=== PATIENT | female | born 1945 | race Hispanic/Latino ===

== ENCOUNTER 2020-10-10 08:47 | Inpatient (IN) | payer MEDICARE, OTHER ==
--- OUTSIDE RECORDS SUMMARY | 2020-10-10 08:50 | XMS REPORT | Continuity of Care Document ---
:1945 Author Organization [facility] t Address [address] [place] [address] Care Team Providers Name Role Phone Eugene Berman DO Primary Care Physician Amandeep FINE, J. Attending Clinician Lab, Fam Pob I Attending Clinician Unavailable Doctor Unassigned, Name Attending Clinician Unavailable Lab, Covid Attending Clinician Unavailable Payers Payer Name Policy Type Policy Effective Date Expiration Date Sour ce Number HUMANA [id number] 2019 [place] MEDICAREHUMANA HMO 00:00:00 Method ist [place] [id number]/-[facility] [place] This patient has no known problems. Allergies, Adverse Reactions, Alerts This patient has no known allergies or adverse reactions. Social History Social Habit Start Date Stop Date Quantity Comments Source Sex Assigned At [facility] Alcohol intake 2013-01-12 2013-01-12 Current [facility] - 00:00:00 00:00:00 non-drinker of Medical Ce nter alcohol (finding) Smoking Status Start Date Stop Date Source Never smoker [facility] Medications Ordered Filled Start Stop Current Ordering Indication Dosage Frequency Signature Comments Components Source Medication Medication Date Date Medication? Clinician (SIG) Name Name Noris Hamm 2019- No [place] [address] [facility] 9-16 12-14 [facility] 30 minutes Memori a 00 :00 before the l first meal Outpati of the day ent on an Clinics empty stomach Vitamin D3 Vitamin D3 2019- No [place] [address] [facility] 9-16 12-14 [facility] l [facility] ent Clinics Myrbetriq Myrbetriq 2018-06- No [place] [address] [facility] 1-05 04-08 [facility]00 [facility] omeprazole Yes 20mg QD Take [address] (PRILOSEC) 7-25 by mouth [facility] - 20 MG 14:32: daily. [facility] Ezetimibe Ezetimibe Yes [place] [address] [facility] Lisinopril Lisinopril Yes [place] [address] [facility] Omeprazole Omeprazole Yes T[place]ne [address] [facility] [facility] Simvastatin Simvastatin Yes [place] [address] [facility] in the [facility] - evening [facility] Procedures Procedure Date / Time Performed Performing Clinician [facility] e MRI SPINE EXTERNAL STUDY 2020-06-19 15:13:00 eLnin Bernstein [facility] Plan of Care Planned Activity Planned Date Details Comments Source Future Scheduled 2021-01-19 INFLUENZA VACCINE [place] [facility] Test 00:00:00 [code = INFLUENZA VACCINE] Future Scheduled 2009-02-05 65+ PNEUMOCOCCAL Orta N[facility]ational Test 00:00:00 VACCINE (1 of 1 - PPSV23) [code = 65+ PNEUMOCOCCAL VACCINE (1 of 1 - PPSV23)] Future Scheduled 1994-02-05 COLONOSCOPY SCREENING Ho inderjit [facility] Test 00:00:00 [code = COLONOSCOPY SCREENING] Future Scheduled 1994-02-05 SHINGLES VACCINES (#1) H [place] [facility] Test 00:00:00 [code = SHINGLES VACCINES (#1)] Future Scheduled 1962-02-05 Hepatitis C screening Erik jansen [facility] Test 00:00:00 (procedure) [code = 417705877] Future Scheduled 1960 COVID-19 VACCINE (1) Janet tamayo [facility] Test 00:00:00 [code = COVID-19 VACCINE (1)] Encounters Start End Encounter Admission Attending Care Care Encounter Source Date/Time Date/Time Type Type Clinicians Facility Department ID 2020-10-08 2020-10-08 [facility] [id number] 2020-09-02 2020-09-02 [facility] [id number] [facility] 2020-08-21 2020-08-21 Outpatient AMANDEEP [facility] [id number] [place] 00:00:00 00:00:00 LENIN [address] 2020-08-21 2020-08-21 Outpatient BERNSTEIN [facility] [id number] [place] 00:00:00 00:00:00 LENIN [address] 2020-07-20 2020-07-20 Laboratory Lab, [facility] [id number] 15:48:31 16:08:31 Only Fam Pob I Health [id number] [place] [id number] Professio [phone] nal 0[address] 2020-07-20 2020-07-20 Letter Doctor OLY [id number] 00:00:00 00:00:00 (Out) Unassigned, SATURN[place] [id number] [place] [facility] [id number] 2020-06-20 2020-06-20 [facility] [id number] [facility] 2020-06-17 2020-06-17 [facility] [id number] [facility] 2020-06-06 2020-06-06 [facility] [id number] [facility] 2020-06-03 2020-06-03 [facility] [id number] [facility] 2020-04-02 2020-04-02 [facility] [id number] [facility] 2020-03-19 2020-03-19 [facility] [id number] [facility] 2020-03-06 2020-03-06 [facility] [id number] 14[facility]30:00 14:30:00 t [employer] [facility] Medicine Outpati ent Clinics 2020-02-29 2020-02-29 Letter Lab, [place] [id number] 00:00:00 00:00:00 (Out) Covid Health [id number] [place] [id number] Professio [phone] nal 044 [address] One 2020-01-20 2020-01-20 Laboratory Lab, [facility] [place] [id number] 13:45:30 14:05:30 Only Fam Pob I Health [id number] [place] [id number] Professio [phone] nal 044 [address] One 2019-12-05 2019-12-05 [facility] [id number] 14:45:00 14:45:00 t [employer] [facility] Medicine Outpati ent Clinics 2019-11-20 2019-11-20 [facility] [id number] 09:10:00 09:10:00 [place] [facility] Medicine Outpati ent Clinics 2019-08-31 2019-08-31 [facility] [id number] 15:30:00 15:30:00 t [employer] - Drive [facility] Medicine Medicine Outpati ent Clinics 2019-08-31 2019-08-31 [facility] [id number] 15:15:00 15:15:00 t Sturgis Sturgis Ablynx Luke s - Drive [facility] l Medicine Outpati ent Clinics 2019-06-29 2019-06-29 [facility] [id number] 15:45:00 15:45:00 t Sturgis Sturgis Ablynx Luke s - Drive [facility] Medicine Outpati ent Clinics 2019-04-25 2019-04-25 [facility] [id number] 14:45:00 14:45:00 t Sturgis Sturgis Ablynx [employer] s - Drive [facility] l Medicine Outpati ent Clinics 2019-04-18 2019-04-18 [facility] [id number] 11:21:00 11:21:00 t Sturgis Sturgis [employer] s - Drive [facility] Medicine Outpati ent Clinics 2019-04-11 2019-04-11 [facility] [id number] 09:02:00 09:02:00 t Sturgis Sturgis Ablynx [employer] s - Drive [facility] l Medicine Outpati ent Clinics 2019-01-24 2019-01-24 [facility] [id number] 14:45:00 14:45:00 t Sturgis Sturgis [employer] s - Drive [facility] Medicine Outpati ent Clinics 2018-10-25 2018-10-25 [facility] [id number] 15:15:00 15:15:00 t Sturgis Sturgis Ablynx [employer] s - Drive [facility] Medicine Medicine Outpati ent Clinics 2018-09-19 2018-09-19 [facility] [id number] 09:16:00 09:16:00 t Sturgis Sturgis Ablynx [employer] s - Drive [facility] Medicine Outpati ent Clinics 2018-08-09 2018-08-09 [facility] [id number] 15:15:00 15:15:00 t Sturgis Sturgis Ablynx [employer] s - Drive [facility] l Medicine Outpati ent Clinics 2018-07-28 2018-07-28 [facility] [id number] 15:00:00 15:00:00 t [employer] [facility] Outpati ent Clinics 2018-07-22 2018-07-22 [facility] [id number] 15:18:00 15:18:00 t Urgent [facility] Outpat[facility] Clinics 2018-07-13 2018-07-13 [facility] [id number] 16:50:00 16:50:00 t I and love and you [facility] [employer] [facility] Outpati ent [facility] 2018-02-09 2018-02-09 [facility] [id number] 15:15:00 15:15:00 t I and [facility] and you [facility] [employer] [facility] ent [facility] Results Test Description Test Time Test Comments Results Result [facility] e Comments MRI Spine 2020-08-21 This exam was not Orta External Study 15:53:02 acquired at a [facility] Nondenominational facility and has not been interpreted by a Nondenominational Provider. The exam was imported into our imaging system.
[2020-10-10 09:25] LABS: Urine Blood Trace-intact (Negative); Urine Glucose Negative (Negative); Urine Protein Negative (Negative); Urine Specific Gravity 1.025 (1.005-1.030); Urine pH 5.5 (5.0-7.0)
[2020-10-10 09:28] LABS: Absolute Lymphocytes (CBC) 2.8 K/uL (0.7-4.9); Basophils % 0.9 % (0-1.3); Hematocrit 43.5 % (36.0-45.0); Lymphocytes % 23.2 % (15.3-44.8); MPV 8.4 fL (7.6-11.3); RBC Red Blood Cell Count 5.05 M/uL (3.86-4.86)
[2020-10-10] MEDS ORDERED: MORPHINE 4 MG/ML SYR ONE (09:39)
[2020-10-10] MEDS ORDERED: NA CHLORIDE 0.9% 1,000 ML ONE ×2 (09:39→16:20)
[2020-10-10] MEDS ORDERED: ONDANSETRON 4 MG/2 ML VIAL ONE ×2 (09:39→12:33)
[2020-10-10 09:42] LABS: Protime INR 0.97
[2020-10-10 09:47] LABS: ALT/SGPT 29 U/L (12-78); AST/SGOT 15 U/L (15-37); Alkaline Phosphatase 107 U/L (45-117); BUN Blood Urea Nitrogen 11 mg/dL (7-18); Bicarbonate 23 mmol/L (21-32); Bilirubin Direct 0.2 mg/dL (0-0.2); Bilirubin Total 0.6 mg/dL (0.2-1.0); Glucose Level 109 mg/dL (74-106); Lipase 46 U/L (73-393); Magnesium 2.2 mg/dL (1.8-2.4); NT PRO-BNP 28 pg/mL (<450); Potassium 3.9 mmol/L (3.5-5.1); Protein, Total 8.1 g/dL (6.4-8.2); Sodium Level 138 mmol/L (136-145); Troponin (Emerg Dept Use Only) < 0.02 ng/mL (0.0-0.045); Urine Bacteria <20 /HPF (<20); Urine Mucus LIGHT /HPF (NONE SEEN); Urine RBC <5 /HPF (NONE SEEN)
--- NOTE | 2020-10-10 10:09 | RAD REPORT ---
EXAM DESCRIPTION: RAD - Chest Single View - 10/10/2020 9:45 am CLINICAL HISTORY: CHEST PAIN, abdominal pain COMPARISON: March 2017 TECHNIQUE: AP portable chest image was obtained 10/10/2020 9:45 am . FINDINGS: Lungs are clear. Heart and vasculature are normal. No measurable pleural effusion and no p neumothorax. No acute bony abnormality seen. No acute aortic findings suspected. IMPRESSION: No acute cardiopulmonary process. No significant change from comparison study.
--- NOTE | 2020-10-10 10:31 | RAD REPORT ---
EXAM DESCRIPTION: CT - Abdomen Pelvis W Contrast - 10/10/2020 10:07 am CLINICAL HISTORY: ABD PAIN COMPARISON: Abdomen Pelvis W Contrast dated 07/14/2019 TECHNIQUE: Biphasic, helical CT imaging of the abdomen and pelvis was performed following 100 ml non -ionic IV contrast. No oral contrast was administered. All CT scans are performed using dose optimization technique as appropriate and may include automated exposure control or mA/KV adjustment according to patient size. FINDINGS: No suspicious findings in the lung bases. The liver, spleen, and pancreas show no suspicious findings. Fatty infiltration of the liver is prese nt. The multiple liver cyst 2 cm in size are not clearly different from prior imaging. Gallbladder is absent. Biliary tree dilatation within normal limits for a post cholecystectomy patient. Symmetric renal function is seen with no hydronephrosis or suspicious renal mass. No pyelonephritis o r acute parenchymal process. No bladder abnormalities. No adrenal abnormalities. No stomach or small bowel abnormality. The appendix is normal. No acute colon finding from cecum thro ugh mid descending colon. At the descending sigmoid junction there is a 3 centimeter long segment of circumferential wall thickening. There is edema and stranding in the adjacent fat mild in severity. P atient has very extensive diverticulosis through this region. No abscess, free air or extravasation o f luminal content. No free fluid or pneumatosis. No inflammatory stranding elsewhere. No mass or bulky lymphadenopath y. Disc and bone degenerative changes are present. IMPRESSION: Colon wall thickening, inflammatory stranding and surrounding extensive diverticulosis a t the descending- sigmoid colon junction. Acute diverticulitis is the most likely etiology. Colon mass is unlikely but can be correlated with f ollow-up colonoscopy after medical management of diverticulitis. No free air, abscess or other complicating factor.
--- NOTE | 2020-10-10 10:45 | ER ---
Nurse's Notes [facility] Name: Regi Cooney Age: 75 yrs Sex: Female : 1945 Arrival Date: 10/10/2020 Time: 08:49 Bed 20 Private MD: Estefania Duenas M; Tremayne Berman Diagnosis: Diverticulitis of large intestine without perforation or abscess without bleeding Presentation: 10/10 09:01 Chief complaint: Patient states: Pt reports she is taking antibiotics for aa5 diverticulitis. Reports abd pain. Pt also reports chest pain and cough. 09:01 Onset of symptoms was September 2020. aa5 09:01 Acuity: COLT 3 aa5 09:01 Method Of Arrival: Ambulatory aa5 09:42 Coronavirus screen: Client denies travel out of the [place] in the last 14 days. At this tr6 time, the client does not indicate any symptoms associated with coronavirus-19. Risk Assessment: Do you want to hurt yourself or someone else? Patient reports no desire to harm self or others. 14:42 Ebola Screen: Patient denies travel to an Ebola-affected area in the 21 days before tw2 illness onset. Initial Sepsis Screen: Does the patient meet any 2 criteria? No. Patient's initial sepsis screen is negative. Does the patient have a suspected source of infection? No. Patient's initial sepsis screen is negative. Historical: - Home Meds: 09:15 lisinopril Oral [Active]; tr6 - PMHx: 09:15 Hypertension; Arthritis; tr6 - Social history:: Smoking status: Patient/guardian denies using. Screenin:15 Nutritional screening: No deficits noted. Tuberculosis screening:. Fall Risk None tr6 identified. 09:41 Nutritional screening: No deficits noted. The patient passed the bedside swallow tr6 screening. Oral medications may be given as ordered. Contact Physician for further diet orders. Exposure risk/Travel Screening: None identified. 10:38 Abuse screen: Denies threats or abuse. tw2 Assessment: 09:10 General: Appears uncomfortable, well groomed, pt appears to be in pain . Behavior is tr6 calm, cooperative. Pain: Complains of pain in c/o generalized abdominal pain. Neuro: No deficits noted. Cardiovascular: No deficits noted. Respiratory: Reports pt reports "difficulty breathing" current o2 sat 100% on RA, lungs clear. pt reports that she feels as though she has "a lot of mucus in her chest". GI: Abdomen is distended, Bowel sounds present in epigastric area, umbilical area, suprapubic area, right upper quadrant, left upper quadrant, right lower quadrant and left lower quadrant Abd is non tender pt is non tender, but reports that she feels uncomfortable. : No deficits noted. EENT: No deficits noted. Derm: No deficits noted. Musculoskeletal: No deficits noted. 10:37 Reassessment: provider at bedside. tw2 11:26 Reassessment: Patient appears in no apparent distress at this time. tr6 12:27 Reassessment: pt reports that she still has pain. MD informed and orders placed and pt tr6 medicated. will continue to monitor. 13:19 Reassessment: pt reports pain has improved since arrival in ED. pending admission. will tr6 continue to monitor. 20:14 Reassessment: Patient and/or family updated on plan of care and expected duration. Pain ea level reassessed. Patient is alert, oriented x 3, equal unlabored respirations, skin warm/dry/pink. Awaiting on room assignment. 21:21 Reassessment: Patient and/or family updated on plan of care and expected duration. Pain ea level reassessed. Patient is alert, oriented x 3, equal unlabored respirations, skin warm/dry/pink. Pt admitted to fourth floor. Report given to receiving nurse. Pt left ED via wheelchair per tech, pt tolerating well. Vital Signs: 09:17 BP 171 / 89; Pulse 92; Resp 18; Pulse Ox 100% ; tr6 10:38 BP 141 / 79; Pulse 83; Resp 17; Pulse Ox 100% on R/A; tw2 12:01 BP 143 / 83; Pulse 73; Resp 18; Pulse Ox 100% ; tr6 13:00 BP 122 / 70; Pulse 70; Resp 18; Pulse Ox 96% ; tr6 20:17 BP 127 / 74; Pulse 76; Resp 18; Pulse Ox 96% on R/A; ea 21:22 BP 120 / 68; Pulse 70; Resp 18; Pulse Ox 98% ; ea Vitals: 09:17 Cardiac Rhythm Assessment Regular. tr6 NIH Stroke Scale Scores: 09:15 NIHSS Score: 0 tr6 ED Course: 08:49 Patient arrived in ED. as 08:49 Tremayne Berman DO is Private Physician. as 08:49 Estefania Duenas MD is Private Physician. as 09:01 Castillo Chan PA is PHCP. jr8 09:01 Ry Ledezma MD is Attending Physician. jr8 09:01 Arm band placed on Patient placed in an exam room, on a stretcher. aa5 09:03 Castillo Chan PA is PHCP. jr8 09:40 Basic Metabolic Panel Sent. tr6 09:40 Magnesium Sent. tr6 09:40 NT PRO-BNP Sent. tr6 09:40 PT-INR Sent. tr6 09:40 Troponin (emerg Dept Use Only) Sent. tr6 09:40 XRAY Chest (1 view) Sent. tr6 09:41 Triage completed. aa5 09:41 Bo Flannery MD is Attending Physician. jr8 09:41 Basic Metabolic Panel Sent. tr6 09:41 Hepatic Function Sent. tr6 09:41 Lipase Sent. tr6 09:42 Inserted saline lock: 20 gauge in right forearm, using aseptic technique. ,using tr6 aseptic technique. by Selena DECKER Blood collected. 09:42 Patient has correct armband on for positive identification. Placed in gown. Bed in low tr6 position. Call light in reach. Side rails up X 1. 09:45 XRAY Chest (1 view) In Process Unspecified. EDMS 10:07 CT Abd/Pelvis - IV Contrast Only In Process Unspecified. EDMS 10:37 Skyla Garrido, JERONIMO is Primary Nurse. tw2 10:44 Elida Michaud MD is Hospitalizing Provider. jr8 11:19 Urine Dipstick-Ancillary Sent. tr6 11:56 groundwater monitoring technician on. Pulse ox on. NIBP on. Door closed. Noise minimized. Warm blanket tr6 given. Diet: Patient is NPO. 12:27 Awaiting bed assignment. tr6 12:27 Resting quietly. tr6 19:47 No provider procedures requiring assistance completed. Patient admitted, IV remains in ea place. Administered Medications: 09:33 Drug: morphine 4 mg Route: IVP; Site: right forearm; tr6 09:44 Follow up: Response: No adverse reaction; Pain is decreased tr6 09:33 Drug: Zofran (Ondansetron) 4 mg Route: IVP; Site: right forearm; tr6 09:44 Follow up: Response: No adverse reaction; Nausea is decreased tr6 11:20 Follow up: Response: No adverse reaction tr6 09:33 Drug: NS 0.9% 1000 ml Route: IV; Rate: 1000 ml; Site: right forearm; tr6 11:20 Follow up: IV Intake: 1000ml tr6 10:53 Drug: Flagyl (metroNIDAZOLE) 500 mg Volume: 100 ml; Route: IVPB; Rate: 200 ml/hr; tr6 Infused Over: 30 mins; Site: right forearm; 11:23 Follow up: Response: Pain is decreased; IV Intake: 100ml tr6 11:26 Drug: Cipro (ciprofloxacin) 400 mg Volume: 200 ml; Route: IVPB; Infused Over: 60 mins; tr6 Site: right forearm; 11:57 Follow up: Response: No adverse reaction tr6 12:30 Follow up: IV Intake: 200ml tr6 12:16 Drug: Zofran (Ondansetron) 4 mg Route: IVP; Site: right forearm; tr6 12:46 Follow up: Response: No adverse reaction; Nausea is decreased tr6 12:21 Drug: Bentyl (dicyclomine) 20 mg Route: IM; Site: right deltoid; tr6 12:46 Follow up: Response: No adverse reaction; Pain is decreased tr6 Intake: 11:20 IV: 1000ml; Total: 1000ml. tr6 11:23 IV: 100ml; Total: 1100ml. tr6 12:30 IV: 200ml; Total: 1300ml. tr6 Outcome: 10:44 Decision to Hospitalize by Provider. jr8 19:47 Instructed on the need for admit, Demonstrated understanding of instructions. ea 21:21 Admitted to Med/surg accompanied by tech, via wheelchair, room 419, with chart, Report ea called to Receiving nurse on fourth floor 21:21 Condition: stable 21:22 Patient left the ED. ea NIH Stroke Scale - NIH Stroke Score Date: 10/10/2020 Time: 09:15 Total Score = 0 1a. Level of Consciousness (LOC) - 0(Alert) 1b. Level of Consciousness (LOC) (Year \\T\\ Age) - 0(Both) 1c. LOC Commands (Open \\T\\ Closes Eyes/Preschool Teacher) - 0(Both) 2. Best Gaze (Lateral Gaze Paresis) - 0(Normal) 3. Visual Field Loss - 0(No visual loss) 4. Facial Palsy - 0(Normal) 5a. Left Arm: Motor (10-second hold) - 0(No drift) 5b. Right Arm: Motor (10-second hold) - 0(No drift) 6a. Left Leg: Motor (5-second hold - always test supine) - 0(No drift) 6b. Right Leg: Motor (5-second hold - always test supine) - 0(No drift) 7. Limb Ataxia (finger/nose \\T\\ heel/rogers - test with eyes open) - 0(Absent) 8. Sensory Loss (pinprick arms/legs/face) - 0(Normal) 9. Best Language: Aphasia (description/naming/reading) - 0(No aphasia) 10. Dysarthria (speech clarity - read or repeat words) - 0(Normal) 11. Extinction and Inattention (visual/tactile/auditory/spatial/personal) - 0(No abnormality) Initials: tr6 Signatures: Dispatcher [employer] Vesna Sanders Audri, RN RN aa5 Castillo Chan PA PA jr8 Selena Rod RN RN tw2 Carolina Matos RN RN ea Ramnanan, Tiffany, RN RN tr6 Corrections: (The following items were deleted from the chart) 09:43 09:42 Inserted tr6 tr6 11:24 11:23 IV Intake: 100ml tr6 tr6 11:25 11:19 Flagyl (metroNIDAZOLE) 500 mg 100 ml IVPB at 200 ml/hr in right forearm tr6 over 30 mins 100 ml tr6
--- NOTE | 2020-10-10 10:45 | EDPHYS ---
Physician Documentation [facility] Name: Regi Cooney Age: 75 yrs Sex: Female : 1945 Arrival Date: 10/10/2020 Time: 08:49 Bed 20 Private MD: Estefania Duenas M; Tremayne Berman ED Physician Bo Flannery HPI: 10/10 09:16 This 75 yrs old Female presents to ER via Unassigned with complaints of jr8 diverticulitis. 09:16 Patient reports hx of diverticulosis that has been flaring up for 3 weeks with LLQ jr8 pain. She reports being put on Abx but they did not help. She also reports CP with coughing up blood this morning. Denies COVID exposure and has had both shots. PMHx HTN only. Historical: - Home Meds: 09:15 lisinopril Oral [Active]; tr6 - PMHx: 09:15 Hypertension; Arthritis; tr6 - Social history:: Smoking status: Patient/guardian denies using. ROS: 09:18 : Negative for injury, bleeding, discharge, and swelling, MS/Extremity: Negative for jr8 injury and deformity, Neuro: Negative for headache, weakness, numbness, tingling, and seizure. 09:18 Cardiovascular: Positive for chest pain, with cough. 09:18 Respiratory: Positive for shortness of breath, on exertion. 09:18 Abdomen/GI: Positive for abdominal pain, diarrhea. Exam: 09:18 Chest/axilla: Normal chest wall appearance and motion. Nontender with no deformity. jr8 No lesions are appreciated. Cardiovascular: Regular rate and rhythm with a normal S1 and S2. No gallops, murmurs, or rubs. Normal PMI, no JVD. No pulse deficits. 09:18 Respiratory: the patient does not display signs of respiratory distress, Respirations: normal, Breath sounds: decreased breath sounds, are scattered. 09:18 Abdomen/GI: Inspection: obese scar(s), are noted in the suprapubic area, Bowel sounds: diminished, in the left lower quadrant, Palpation: moderate abdominal tenderness, in the left lower quadrant, involuntary guarding, is elicited in all quadrants. Vital Signs: 09:17 BP 171 / 89; Pulse 92; Resp 18; Pulse Ox 100% ; tr6 10:38 BP 141 / 79; Pulse 83; Resp 17; Pulse Ox 100% on R/A; tw2 12:01 BP 143 / 83; Pulse 73; Resp 18; Pulse Ox 100% ; tr6 13:00 BP 122 / 70; Pulse 70; Resp 18; Pulse Ox 96% ; tr6 20:17 BP 127 / 74; Pulse 76; Resp 18; Pulse Ox 96% on R/A; ea 21:22 BP 120 / 68; Pulse 70; Resp 18; Pulse Ox 98% ; ea NIH Stroke Scale Scores: 09:15 NIHSS Score: 0 tr6 MDM: 09:01 Patient medically screened. jr8 10:42 Data reviewed: vital signs, nurses notes, lab test result(s), radiologic studies, CT jr8 scan, plain films. Data interpreted: Pulse oximetry: on room air is 100 %. Interpretation: normal. Counseling: I had a detailed discussion with the patient and/or guardian regarding: the historical points, exam findings, and any diagnostic results supporting the discharge/admit diagnosis, lab results, radiology results, the need for further work-up and treatment in the hospital. ED course: Patient with moderate diverticulitis present. Stated that she has had this for 3 weeks without resolution despite Abx given by GI physician. Will admit for IV antibiotic therapy . 10/10 09:13 Order name: Basic Metabolic Panel [facility] 10/10 09:13 Order name: CBC with Diff; Complete Time: 09:29 [facility] 10/10 09:13 Order name: Hepatic Function; Complete Time: :56 [facility] 10/10 09:13 Order name: Lipase; Complete Time: 09:56 [facility] 10/10 09:13 Order name: Urine Microscopic Only; Complete Time: 09:56 [facility] 10/10 09:13 Order name: C-Reactive Protein; Complete Time: 09:56 [facility] 10/10 09:13 Order name: Magnesium; Complete Time: :56 [facility] 10/10 09:13 Order name: NT PRO-BNP; Complete Time: 09:56 [facility] 10/10 09:13 Order name: PT-INR; Complete Time: 09:56 [facility] 10/10 09:13 Order name: Troponin (emerg Dept Use Only); Complete Time: 09:56 [facility] 10/10 09:14 Order name: Basic Metabolic Panel; Complete Time: 09:56 EDMS 10/10 09:25 Order name: Urine Dipstick-Ancillary EDMS 10/10 12:36 Order name: Basic Metabolic Panel EDMS 10/10 12:36 Order name: Basic Metabolic Panel EDMS 10/10 09:13 Order name: CT Abd/Pelvis - IV Contrast Only; Complete Time: 10:32 8 10/10 09:13 Order name: XRAY Chest (1 view); Complete Time: 10:25 8 10/10 09:13 Order name: EKG; Complete Time: 09:14 8 10/10 12:36 Order name: CBC with Automated Diff EDMS 10/10 12:36 Order name: CBC with Automated Diff EDMS 10/10 17:44 Order name: COVID-19 : Document "Date of Symptom Onset" if Symptomatic. kj1 10/10 18:06 Order name: CORONAVIRUS EDAK 10/10 19:02 Order name: SARS-COV-2 RT PCR; Complete Time: 19:25 [facility] 10/10 09:13 Order name: IV Saline Lock; Complete Time: 09:40 8 10/10 09:13 Order name: Labs collected and sent; Complete Time: 09:41 8 10/10 09:13 Order name: Urine Dipstick-Ancillary (obtain specimen); Complete Time: 09:58 8 10/10 09:13 Order name: Cardiac monitoring; Complete Time: 09:40 8 10/10 09:13 Order name: EKG - Nurse/Tech; Complete Time: 09:57 8 10/10 09:13 Order name: O2 Per Protocol; Complete Time: 09:40 8 10/10 09:13 Order name: O2 Sat Monitoring; Complete Time: 09:40 8 10/10 12:36 Order name: CONS Physician Consult EDAK 10/10 12:36 Order name: NPO EDAK 10/10 12:36 Order name: EKG Electrocardiogram EDAK 10/10 12:36 Order name: EKG Electrocardiogram EDMS 10/10 12:36 Order name: EKG Electrocardiogram EDMS 10/10 12:36 Order name: EKG Electrocardiogram EDMS 10/10 12:36 Order name: EKG Electrocardiogram EDMS 10/10 12:36 Order name: EKG Electrocardiogram EDMS 10/10 12:36 Order name: EKG Electrocardiogram EDMS 10/10 12:36 Order name: EKG Electrocardiogram EDMS 10/10 12:36 Order name: EKG Electrocardiogram EDMS 10/10 12:36 Order name: EKG Electrocardiogram EDMS 10/10 12:36 Order name: EKG Electrocardiogram EDMS Administered Medications: 09:33 Drug: morphine 4 mg Route: IVP; Site: right forearm; tr6 09:44 Follow up: Response: No adverse reaction; Pain is decreased tr6 09:33 Drug: Zofran (Ondansetron) 4 mg Route: IVP; Site: right forearm; tr6 09:44 Follow up: Response: No adverse reaction; Nausea is decreased tr6 11:20 Follow up: Response: No adverse reaction tr6 09:33 Drug: NS 0.9% 1000 ml Route: IV; Rate: 1000 ml; Site: right forearm; tr6 11:20 Follow up: IV Intake: 1000ml tr6 10:53 Drug: Flagyl (metroNIDAZOLE) 500 mg Volume: 100 ml; Route: IVPB; Rate: 200 ml/hr; tr6 Infused Over: 30 mins; Site: right forearm; 11:23 Follow up: Response: Pain is decreased; IV Intake: 100ml tr6 11:26 Drug: Cipro (ciprofloxacin) 400 mg Volume: 200 ml; Route: IVPB; Infused Over: 60 mins; tr6 Site: right forearm; 11:57 Follow up: Response: No adverse reaction tr6 12:30 Follow up: IV Intake: 200ml tr6 12:16 Drug: Zofran (Ondansetron) 4 mg Route: IVP; Site: right forearm; tr6 12:46 Follow up: Response: No adverse reaction; Nausea is decreased tr6 12:21 Drug: Bentyl (dicyclomine) 20 mg Route: IM; Site: right deltoid; tr6 12:46 Follow up: Response: No adverse reaction; Pain is decreased tr6 Disposition: 10/10/20 10:44 Hospitalization ordered by Elida Michaud for Inpatient Admission. Preliminary diagnosis is Diverticulitis of large intestine without perforation or abscess without bleeding. - Bed requested for Telemetry/MedSurg (Inpatient). - Status is Inpatient Admission. ea - Condition is Stable. - Problem is new. - Symptoms are unchanged. NIH Stroke Scale - NIH Stroke Score Date: 10/10/2020 Time: 09:15 Total Score = 0 1a. Level of Consciousness (LOC) - 0(Alert) 1b. Level of Consciousness (LOC) (Year \\T\\ Age) - 0(Both) 1c. LOC Commands (Open \\T\\ Closes Eyes/Technical Spec) - 0(Both) 2. Best Gaze (Lateral Gaze Paresis) - 0(Normal) 3. Visual Field Loss - 0(No visual loss) 4. Facial Palsy - 0(Normal) 5a. Left Arm: Motor (10-second hold) - 0(No drift) 5b. Right Arm: Motor (10-second hold) - 0(No drift) 6a. Left Leg: Motor (5-second hold - always test supine) - 0(No drift) 6b. Right Leg: Motor (5-second hold - always test supine) - 0(No drift) 7. Limb Ataxia (finger/nose \\T\\ heel/rogers - test with eyes open) - 0(Absent) 8. Sensory Loss (pinprick arms/legs/face) - 0(Normal) 9. Best Language: Aphasia (description/naming/reading) - 0(No aphasia) 10. Dysarthria (speech clarity - read or repeat words) - 0(Normal) 11. Extinction and Inattention (visual/tactile/auditory/spatial/personal) - 0(No abnormality) Initials: tr6 Addendum: 10/14/2020 19:27 Co-signature as Attending Physician, Bo Flannery MD. rn Signatures: Dispatcher [employer] EDMS Ailyn Foster RN RN mw Nieto, Roman, MD MD rn Roszak, Josh, PA PA jr8 Carolina Matos RN RN ea Ramnanan, Tiffany, RN RN tr6 Corrections: (The following items were deleted from the chart) 10/10 09:18 09:16 Patient reports hx of diverticulosis that has been flaring up for 3 weeks jr8 with LLQ pain. She reports being put on Abx but they did not help. She also reports CP with coughing up blood this morning. Denies COVID exposure and has had both shots. . jr8 20:15 10:44 Hospitalization Ordered by Elida Michaud MD for Inpatient Admission. charles Preliminary diagnosis is Diverticulitis of large intestine without perforation or abscess without bleeding. Bed requested for Telemetry/MedSurg (Inpatient). Status is Inpatient Admission. Condition is Stable. Problem is new. Symptoms are unchanged. jr8 21:22 20:15 10/10/2020 10:44 Hospitalization Ordered by Elida Michaud MD for ea Inpatient Admission. Preliminary diagnosis is Diverticulitis of large intestine without perforation or abscess without bleeding. Bed requested for Telemetry/MedSurg (Inpatient). Status is Inpatient Admission. Condition is Stable. Problem is new. Symptoms are unchanged. mw
[2020-10-10] MEDS ORDERED: ACETAMINOPHEN 500 MG TAB PO PRN (12:32)
[2020-10-10] MEDS ORDERED: DICYCLOMINE HCL 20 MG/2 ML AMP IM ONE (12:33)
[2020-10-10] MEDS: NA CHLORIDE 0.9% 1,000 ML IV SCH ×2 (13:00→22:17)
[2020-10-10] MEDS: Levofloxacin500mg IV 500 MG/100 ML BAG IV SCH ×2 (13:00→16:00)
[2020-10-10] MEDS ORDERED: NA CHLORIDE 0.9% 250 ML IV SCH (13:00)
[2020-10-10 15:01] VITALS: BMI 32.8
[2020-10-10] MEDS: MORPHINE 2 MG/ML SYR IV PRN ×2 (16:13→22:17)
[2020-10-10] MEDS ORDERED: Levofloxacin500mg IV 500 MG/100 ML BAG IV ONE (16:19)
[2020-10-10] MEDS ORDERED: MORPHINE 2 MG/ML SYR ONE (16:31)
[2020-10-10] MEDS: METRONIDAZOLE 500mg IVPB 500 MG/100 ML BAG IV SCH (17:00)
[2020-10-10] MEDS ORDERED: METRONIDAZOLE 500mg IVPB 500 MG/100 ML BAG IV ONE (19:35)
[2020-10-10] MEDS: ONDANSETRON 4 MG/2 ML VIAL IV PRN (22:17)
[2020-10-11] MEDS: METRONIDAZOLE 500mg IVPB 500 MG/100 ML BAG IV SCH ×3 (01:00→17:00)
[2020-10-11] MEDS: NA CHLORIDE 0.9% 1,000 ML IV SCH ×2 (04:50→20:14)
[2020-10-11] MEDS: MORPHINE 2 MG/ML SYR IV PRN ×3 (04:51→23:33)
[2020-10-11] MEDS: ONDANSETRON 4 MG/2 ML VIAL IV PRN (04:51)
[2020-10-11 10:05] LABS: Basophils % 0.4 % (0-1.3); Hematocrit 37.4 % (36.0-45.0); MPV 8.9 fL (7.6-11.3); RBC Red Blood Cell Count 4.28 M/uL (3.86-4.86)
[2020-10-11 10:11] LABS: BUN Blood Urea Nitrogen 8 mg/dL (7-18)
[2020-10-11 11:02] LABS: Bicarbonate 22 mmol/L (21-32); Glucose Level 88 mg/dL (74-106); Potassium 4.3 mmol/L (3.5-5.1); Sodium Level 140 mmol/L (136-145)
[2020-10-11] MEDS: Levofloxacin500mg IV 500 MG/100 ML BAG IV SCH (13:00)
[2020-10-12] MEDS: METRONIDAZOLE 500mg IVPB 500 MG/100 ML BAG IV SCH ×4 (00:12→23:37)
[2020-10-12] MEDS: NA CHLORIDE 0.9% 1,000 ML IV SCH ×2 (05:00→09:48)
[2020-10-12] MEDS: MORPHINE 2 MG/ML SYR IV PRN (06:15)
--- NOTE | 2020-10-12 07:59 | EKG ---
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
--- NOTE | 2020-10-12 08:02 | EKG ---
Test Date: 2020-10-10 Test Time: 09:53:22 Location Worker: TTR MEASUREMENT RESULTS: Intervals: Rate: 72 CT: 148 QRSD: 72 QT: 388 QTc: 424 [place]: P: 48 CT: 148 QRS: 48 T: 36 INTERPRETIVE STATEMENTS: Normal sinus rhythm Low voltage QRS Borderline ECG No previous ECG available for comparison Electronically Signed On 10-12-20 07:58:28 CDT by Mazin Lee
--- NOTE | 2020-10-12 11:43 | RAD REPORT ---
EXAM DESCRIPTION: RAD - Abdomen 1 View (KUB) - 10/12/2020 9:24 am CLINICAL HISTORY: abdominal pain Pain COMPARISON: <Comparisons> FINDINGS: The bowel gas pattern is non-obstructive. No evidence of free air or pneumatosis. No suspi cious calcifications. Cholecystectomy clips. No significant bony findings. Moderate fecal retention. IMPRESSION: Negative examination.
[2020-10-12] MEDS: Levofloxacin500mg IV 500 MG/100 ML BAG IV SCH (12:55)
[2020-10-12] MEDS ORDERED: MINERAL OIL 30 ML UCUP PO ONE (13:00)
--- NOTE | 2020-10-12 15:05 | CON ---
Date of Consultation: 10/12/2020 Brief Hpi: The patient is a 75-year-old female who presents to the ER with signs and sympto ms of acute diverticulitis. She states that she has had multiple episodes before in the past over th e past 10 years approximately where she has had multiple episodes of left lower quadrant, left upper quadrant abdominal pain, which she was seen in the hospital for. Imaging was performed multiple time s and showed significant diverticulitis on those episodes. She has never had an episode of complicat ed diverticulitis by her report, which she is unsure of all the details of her previous hospitalizati ons. She states she did have a colonoscopy approximately [address] Duenas, which showed se alf diverticulosis and low-grade diverticulitis. She now had another flare-up approximately 3 weeks ago and continues to have worsening pain. She has decreased bowel function. She has not passed gas or had bowel movements on occasions for up to 4 days and on this particular occasion, she has not wray d a bowel movement 3 days, but continues to pass gas. Her abdominal pain symptoms have improved sinc e being brought to the hospital, started on antibiotics and pain medication, but this is a typical co urse for her she states. She denies any sick contacts or recent travel. No new food exposures and n o COVID exposures by her knowledge and has had two COVID immunization shots. Past Medical History: Significant for hypertension, arthritis. Past Surgical History: She has had a cholecystectomy as well as a tubal ligation. She has never had any other intraabdominal surgery. Social History: She denies smoking, alcohol, or recreational drug use. Review of Systems: A 10 point review of systemsother than HPI, denies. Medications: Her home medications included ezetimibe, Zestril, Protonix, and simvastatin. Physical Examination: Vital Signs: At time of my examination, her BMI is 32.8. Her blood pressure 143/62, heart rate was 66, respiratory rate 18, temperature 97.6, SpO2 98% on room air. General: She is awake, alert, oriented. Psychiatric: She is appropriate, conversive. HEENT: She is normocephalic. Sclerae icteric. Mucous membranes are moist. Oropharynx clear. Neck: Supple without JVD. Chest: Normal expansion and excursion. Cardiovascular: Regular rate and rhythm. Pulmonary: Clear to auscultation bilaterally. Abdomen: Soft with mild global tenderness to palpation, worse on the left lower and left upper abdom en. There is no peritonitis at this time. Skin: Warm and dry. Extremities: No clubbing, cyanosis, edema. Laboratory Data: Reveals a white blood cell count 7.2, hemoglobin 12.3, over hematocrit of 37.4, lala telet count is 245. Her sodium 140, potassium 4.3, chloride 112, carbon dioxide 22, BUN 8, creatinin e 0.5, glucose is 88. Her C-reactive protein was 18 as of 10/10, lipase is 46 on 10/10. Her urinaly sis was essentially negative. She had imaging performed, which included a CT abdomen and pelvis on 10/10 officially read as fatty infiltration of the liver is present. Biliary tree dilatation within n ormal limits for post cholecystectomy patient. Appendix is normal. No acute colon. The finding fro m cecum through mid descending colon. At the descending sigmoid junction, there is a 3 cm long segme nt of circumferential wall thickening. There is edema and stranding in the adjacent fat, mild in sev erity. The patient has extensive diverticulosis throughout this region. No abscess, free air, extra vasation or luminal content. No free air, pneumatosis. No inflammatory stranding elsewhere. No bul ky lymphadenopathy. Impression: Colon wall thickening, inflammatory stranding surrounding extensive diverticulosis at th e descending sigmoid junction, acute diverticulitis most likely etiology colon mass is unlikely. We can correlate with followup colonoscopy after medical management of diverticulitis. Assessment And Plan: This is a 75-year-old female who comes in with recurrent diverticulitis based o n her clinical imaging and her presentation. Given that she has had a recent colonoscopy as a 4 kiley hs ago, which by her knowledge is significant only for diverticulitis and diverticulosis. I suspect this is a diverticulitis flare. 1.IV fluid hydration. 2.Antibiotic coverage. 3.Advance diet with clear liquid diet and full liquids. I recommend patient to be remain on a low r esidue/full liquid diet until surgical planning is entertained in the clinic at this at that point if she is tolerating diet and meeting her nutritional goals, we can discuss surgical planning at that p oint. The patient does not need emergency surgery at this time and therefore I would recommend a cou rse of antibiotics followed by review of her CT of her review of her colonoscopy findings and discuss ion of surgical planning. The patient agrees to proceed as indicated. CARLENE/MEGHAN Voice ID: [id number] Report ID: [id number]
[2020-10-12 21:55] VITALS: O2SAT 97
[2020-10-13] MEDS: NA CHLORIDE 0.9% 1,000 ML IV SCH (00:16)
[2020-10-13] MEDS ORDERED: MELATONIN 5 MG TABLET PO ONE (00:28)
[2020-10-13 04:57] VITALS: BP 131/72; TEMP 97.6
[2020-10-13] MEDS: METRONIDAZOLE 500mg IVPB 500 MG/100 ML BAG IV SCH (07:35)
--- NOTE | 2020-10-13 08:32 | P.HP ---
Certification for Inpatient Patient admitted to: Inpatient With expected LOS: >2 Midnights Patient will require the following post-hospital care: None Practitioner: I am a practitioner with admitting privileges, knowledge of patient current condition, hospital course, and medical plan of care. Services: Services provided to patient in accordance with Admission requirements found in Title 42 Section 412.3 of the Code of Federal Regulations Patient History Date of Service: 10/10/20 Reason for admission: Diverticulitis History of Present Illness: Patient is a 75-year-old female with recurrent admissions for abdominal pain. Patient is a history of diverticulitis. She has been treated on 4 different occasions. She came to the hospital clear symptom run improving. In the emergency room she was given medication with little relief. She came to the ER for further evaluation. In the emergency room, CT scan revealed diverticulitis. Patient be admitted to the hospital for IV antibiotic therapy and will be kept NPO. Allergies No Known Allergies Allergy (Unverified 10/01/16 14:20) Home Medications: Lisinopril [Zestril] 20 mg PO DAILY MDD 20 10/10/20 Pantoprazole [Protonix Tab*] 40 mg PO DAILY MDD 40 10/10/20 Simvastatin 10 mg PO DAILY MDD 10 10/10/20 Ezetimibe 10 mg PO BEDTIME 10/11/20 - Past Medical/Surgical History Has patient received pneumonia vaccine in the past: Yes -: Acute diverticulitis Past Surgical History: Patient denies surgical history - Family History Father Family History: Reviewed- Non-Contributory - Social History Smoking Status: Never smoker Alcohol use: No CD- Drugs: No Place of Residence: Home Review of Systems 10-point ROS is otherwise unremarkable Physical Examination - Vital Signs Temperature: 97.6 F Blood Pressure: 131/72 Pulse: 77 Respirations: 16 Pulse Ox (%): 97 - Physical Exam General: Alert, In no apparent distress, Oriented x3 HEENT: Atraumatic, PERRLA, Mucous membr. moist/pink, EOMI, Sclerae nonicteric Neck: Supple, 2+ carotid pulse no bruit, No LAD, Without JVD or thyroid abnormality Respiratory: Clear to auscultation bilaterally, Normal air movement Cardiovascular: Regular rate/rhythm, Normal S1 S2 Gastrointestinal: Hypoactive, Soft and benign, Non-distended, Tenderness Musculoskeletal: No clubbing, No swelling, No tenderness Integumentary: No rashes Neurological: Normal gait, Normal speech, Normal strength at 5/5 x4 extr, Normal tone, Sensation intact, Cranial nerves 3-12 intact, Normal affect Lymphatics: No axilla or inguinal lymphadenopathy Assessment & Plan - Problems (Diagnosis) (1) Diverticulitis large intestine w/o perforation or abscess w/bleeding Current Visit: Yes Status: Acute - Plan 1. Continue with IV hydration 2. Continue with IV antibiotics 3. Continue with pain control 4. NPO 5. GI & general surgery consultation; outpatient colonoscopy in 6-12 weeks 6. Serial H&H, and we will monitor CBC, BMP, LFTs and lipase along with electrolytes. 7. GI and DVT prophylaxis Discharge Plan: Home Plan to discharge in: Greater than 2 days - Advance Directives Does patient have a Living Will: No Does patient have a Durable POA for Healthcare: No - Code Status/Comfort Care Code Status Assessed: Yes Code Status: Full Code Critical Care: No Time Spent Managing PTS Care (In Minutes): 45
--- NOTE | 2020-10-13 08:34 | P.PN ---
Subjective Date of Service: 10/11/20 Subjective: No new changes, No C/O voiced, Improving Patient improving. However, she did ask me if there is any surgical interventions that could be done. She has had frequent diverticulitis and does not know her options. She sees local GI in gets colonoscopies. These have revealed diverticulums. Wants know if there is any other options. Review of Systems 10-point ROS is otherwise unremarkable Physical Examination - Vital Signs Temperature: 97.6 F Blood Pressure: 131/72 Pulse: 77 Respirations: 16 Pulse Ox (%): 97 - Physical Exam General: Alert, In no apparent distress, Oriented x3 Respiratory: Clear to auscultation bilaterally, Normal air movement Cardiovascular: Regular rate/rhythm, Normal S1 S2 Gastrointestinal: Hypoactive, Tenderness Musculoskeletal: No clubbing, No swelling, No tenderness Neurological: Normal speech, Normal tone, Normal affect Lymphatics: No axilla or inguinal lymphadenopathy - Studies Medications List Reviewed: Yes Assessment & Plan - Problems (Diagnosis) (1) Diverticulitis large intestine w/o perforation or abscess w/bleeding Current Visit: Yes Status: Acute - Plan continue with plan of care as mentioned below 1. Continue with IV hydration 2. Continue with IV antibiotics 3. Continue with pain control 4. Clear liquid diet 5. GI & general surgery consultation; outpatient colonoscopy in 6-12 weeks 6. Serial H&H, and we will monitor CBC, BMP, LFTs and lipase along with electrolytes. 7. GI and DVT prophylaxis Discharge Plan: Home Plan to discharge in: Greater than 2 days - Advance Directives Does patient have a Living Will: No Does patient have a Durable POA for Healthcare: No - Code Status/Comfort Care Code Status: Full Code Critical Care: No Time Spent Managing PTS Care (In Minutes): 35
[2020-10-13] MEDS ORDERED: MINERAL OIL 30 ML UCUP PO ONE (08:36)
--- NOTE | 2020-10-13 08:36 | P.PN ---
Date of Service: 10/12/20 Subjective Patient improving. However, she did ask me if there is any surgical interventions that could be done. She has had frequent diverticulitis and does not know her options. She sees local GI in gets colonoscopies. These have revealed diverticulums. Wants know if there is any other options. Review of Systems 10-point ROS is otherwise unremarkable Physical Examination - Vital Signs Reviewed - Physical Exam General: Alert, In no apparent distress, Oriented x3 Respiratory: Clear to auscultation bilaterally, Normal air movement Cardiovascular: Regular rate/rhythm, Normal S1 S2 Gastrointestinal: Hypoactive, Tenderness Musculoskeletal: No clubbing, No swelling, No tenderness Neurological: Normal speech, Normal tone, Normal affect Assessment & Plan - Problems (Diagnosis) (1) Diverticulitis large intestine w/o perforation or abscess w/bleeding Current Visit: Yes Status: Acute - Plan continue with plan of care as mentioned below 1. Continue with IV hydration 2. Continue with IV antibiotics 3. Continue with pain control 4. Clear liquid diet; feeling constipated. Mineral oil x1 5. Outpatient GI & general surgery evaluation 6. Serial H&H, and we will monitor CBC, BMP, LFTs and lipase along with electrolytes. 7. GI and DVT prophylaxis Discharge Plan: Home
--- NOTE | 2020-10-13 10:45 | P.PN ---
Subjective Date of Service: 10/13/20 Chief Complaint: Diverticulitis Subjective: Improving (patient is pain free, ambulatory, had several large BMs.) Physical Examination - Vital Signs Temperature: 97.6 F Blood Pressure: 131/72 Pulse: 77 Respirations: 16 Pulse Ox (%): 97 - Physical Exam General: Alert, In no apparent distress, Cooperative HEENT: Mucous membr. moist/pink Gastrointestinal: Soft and benign, Non-distended, No ascites, No tenderness, No masses, No rebound, No guarding - Studies Medications List Reviewed: Yes Assessment And Plan - Current Problems (Diagnosis) (1) Diverticulitis large intestine w/o perforation or abscess w/bleeding Current Visit: Yes Status: Acute Plan: - low residue diet - DC home from surgical standpoint, follow up in my clinic in 1-2 weeks for surgical discussion - will review last colonoscopy from Dr. Duenas office
--- NOTE | 2020-10-18 18:59 | P.PN ---
Subjective Date of Service: 10/13/20 Chief Complaint: Diverticulitis, LLQ pain, F/C/diarrhea Subjective: Improving (Feels better on IV antibiotics. She had colonoscopy last year by outside GI.) Physical Examination - Vital Signs Temperature: 97.6 F Blood Pressure: 131/72 Pulse: 77 Respirations: 16 Pulse Ox (%): 97 - Studies Medications List Reviewed: Yes Assessment And Plan - Current Problems (Diagnosis) (1) LLQ abdominal pain Status: Acute (2) Fever and chills Status: Acute (3) Diverticulitis large intestine w/o perforation or abscess w/bleeding Status: Acute - Plan REC: 1) IVFs & IV antibiotics 2) CLs to FLs to GI soft diet slowly 3) she is to f/u in outside GI clinic 4) consider surgery consult for recurrent diverticulitis X8
--- NOTE | 2020-10-28 13:23 | P.DS ---
Discharge Date: 10/13/20 Disposition: ROUTINE DISCHARGE Discharge Condition: GOOD Reason for Admission: Diverticulitis, LLQ pain, F/C/diarrhea Consultations: Gastroenterology General surgeon - Problems (1) Diverticulitis large intestine w/o perforation or abscess w/bleeding Status: Acute Brief History of Present Illness: Patient is a 75-year-old female with recurrent admissions for abdominal pain. Patient is a history of diverticulitis. She has been treated on 4 different occasions. She came to the hospital clear symptom run improving. In the emergency room she was given medication with little relief. She came to the ER for further evaluation. In the emergency room, CT scan revealed diverticulitis. Patient be admitted to the hospital for IV antibiotic therapy and will be kept NPO. Hospital Course: Patient doing well no new complaints continue with antibiotic therapy. At this time, patient is stable for discharge home. Vital Signs/Physical Exam: Temp Pulse Resp BP Pulse Ox 97.6 F 77 16 131/72 97 10/18/20 18:59 10/18/20 18:59 10/18/20 18:59 10/18/20 18:59 10/18/20 18:59 General: Alert, In no apparent distress, Oriented x3 Laboratory Data at Discharge: WBC 7.20 K/uL (4.3-10.9) D 10/11/20 07:12 Hgb 12.3 g/dL (12.0-15.0) 10/11/20 07:12 Hct 37.4 % (36.0-45.0) 10/11/20 07:12 Plt Count 245 K/uL (152-406) 10/11/20 07:12 PT 11.2 SECONDS (9.5-12.5) 10/10/20 09:19 INR 0.97 10/10/20 09:19 Sodium 140 mmol/L (136-145) 10/11/20 09:35 Potassium 4.3 mmol/L (3.5-5.1) 10/11/20 09:35 BUN 8 mg/dL (7-18) 10/11/20 09:35 Creatinine 0.52 mg/dL (0.55-1.3) L 10/11/20 09:35 Glucose 88 mg/dL (74-106) 10/11/20 09:35 Magnesium 2.2 mg/dL (1.8-2.4) 10/10/20 09:19 Total Bilirubin 0.6 mg/dL (0.2-1.0) 10/10/20 09:19 AST 15 U/L (15-37) 10/10/20 09:19 ALT 29 U/L (12-78) 10/10/20 09:19 Alkaline Phosphatase 107 U/L (45-117) 10/10/20 09:19 Lipase 46 U/L (73-393) L 10/10/20 09:19 Home Medications: Lisinopril [Zestril] 20 mg PO DAILY MDD 20 10/10/20 Pantoprazole [Protonix Tab*] 40 mg PO DAILY MDD 40 10/10/20 Simvastatin 10 mg PO DAILY MDD 10 10/10/20 Ezetimibe 10 mg PO BEDTIME 10/11/20 Docusate [Colace Cap] 100 mg PO BID #60 cap 10/13/20 levoFLOXacin [Levaquin] 500 mg PO DAILY #7 tab 10/13/20 metroNIDAZOLE [Flagyl] 500 mg PO Q8H #20 tablet 10/13/20 New Medications: Docusate [Colace Cap] 100 mg PO BID #60 cap metroNIDAZOLE [Flagyl] 500 mg PO Q8H #20 tablet levoFLOXacin [Levaquin] 500 mg PO DAILY #7 tab Physician Discharge Instructions: OK TO DC IV AND DC HOME FOLLOW-UP WITH PRIMARY CARE PROVIDER IN 1-2 WEEKS FOLLOW-UP WITH Gastroenterology and General Surgeon in 1-2 weeks RETURN TO THE ER IF symptoms worsen CALL or TEXT DR. MONTES AT [phone] IF ANY QUESTIONS REGARDING HOSPITAL STAY. PLEASE CALL THE FLOOR AT [phone] IF ANY MEDICATION OR NURSING QUESTIONS. Diet: AHA Activity: Fall precautions Followup: Chadwick Rudolph MD [ACTIVE - CAN ADMIT] - 1-2 Weeks (Call for appointment ) Tremayne Berman DO [Primary Care Provider] - 1-2 Weeks (call for appointment ) Jayson Savage MD [ASSOCIATE-ACTIVE - CAN ADMIT] - 1-2 Weeks (call for appointment) Time spent managing pt's care (in minutes): 35
== END 2020-10-13 10:13 | disposition home or self-care (01) | DRG 379 ==
LOC: ER 08:47 → ERHOLD 12:32 → 4TH 21:12
PROVIDERS: ADMIT Hospitalist; ATTEND Hospitalist
DX: K57.33 Diverticulitis of large intestine without perforation or abscess with bleeding (principal); M19.90 Unspecified osteoarthritis, unspecified site; I10 Essential (primary) hypertension; Z79.899 Other long term (current) drug therapy; Z90.49 Acquired absence of other specified parts of digestive tract; Z98.51 Tubal ligation status; Z20.822 Contact with and (suspected) exposure to COVID-19
CPT/HCPCS: 36415; 71045; 74018; 74177; 80048; 80076; 81003; 81015; 83690; 83735; 83880; 84484; 85025; 85610; 86140; 93005; 96372; 96374; 96375; 99285; J0500; J2270; J2405; J7030; Q9967; U0003

== ENCOUNTER 2021-09-23 07:14 | Day surgery (SDC) | payer MEDICARE ==
[2021-09-23] MEDS ORDERED: Ringers Lactate 1,000 ML IV ONE (07:50)
[2021-09-23] MEDS ORDERED: LIDOCAINE 1% W/EPI 1:100,000 MDV 50 ML VIAL ONE (08:35)
[2021-09-23] MEDS ORDERED: CELECOXIB 100 MG CAPSULE ONE (08:40)
[2021-09-23] MEDS ORDERED: ACETAMINOPHEN 500 MG TAB ONE (08:40)
[2021-09-23] MEDS ORDERED: MIDAZOLAM HCL 2 MG/2 ML INJ ONE (08:56)
[2021-09-23] MEDS ORDERED: propofoL 200 MG/20 ML VIAL IV ONE ×2 (08:59→09:26)
[2021-09-23] MEDS ORDERED: FENTANYL CITR 100 MCG/2 ML ONE (08:59)
[2021-09-23] MEDS ORDERED: ONDANSETRON 4 MG/2 ML VIAL ONE (09:06)
[2021-09-23] MEDS ORDERED: IBUPROFEN 200 MG TAB PO PRN (09:57)
--- NOTE | 2021-09-23 09:57 | P.BOP ---
Preoperative diagnosis: HSIL pap, rectocele, vaginal atrophy, overactive bladder Postoperative diagnosis: same Primary procedure: colposcopy, ECC/ Hysterscopy d&C/ cystoscopy [employer] Specialist: NONE,NONE Estimated blood loss: min Specimen: ECC, EMC Findings: colpo no AWE/hysteroscopy,ut cavity empty/cystoscopy neg Anesthesia: MAC Complications: None Transferred to: Recovery Room Condition: Good (POP-Q: -2/-2/-5/4.5/mod/7/-1/0/-5, local PCB given as well)
[2021-09-23 11:21] VITALS: BP 107/58; TEMP 97.6; O2SAT 98
--- NOTE | 2021-09-23 13:33 | OP ---
Date of Procedure: 09/23/2021 Surgeon: Rosemary Robles MD Preoperative Diagnoses: HSIL Pap, rectocele, vaginal atrophy and overactive bladder. Postoperative Diagnoses: HSIL Pap, rectocele, vaginal atrophy and overactive bladder. Procedures Performed: 1.Colposcopy with ECC. 2.Diagnostic hysteroscopy with D and C. 3.Cystoscopy. Specimens: Endometrial curettings and endocervical curettage, which was done for her abnormal Pap sm ear, which was also investigated with the help of the colposcopy and an endometrial biopsy was also p erformed with endometrial curettings. Anesthesia: MAC plus paracervical block. Complications: No complications. Drains: No drains. Condition: Stable. Findings: POP-Q was -2, -2, -5, 4.5, moderate 7, -1, 0, -5. On colposcopy, no acetowhite epithelium was seen, so ECC was performed to evaluate the endocervical canal. Then, on D and C, the uterine ca vity was empty and small curettage was performed; however, a scant specimen was achieved. Cystoscopy was completely negative for tumors, masses, and stones. Indications: The patient is a 76-year-old, presenting with an abnormal Pap and prolapse, evaluated f or the abnormal Pap. No etiology seen on the ectocervix. The plan was to do an exam under anesthesi a. The patient was not very tolerant, especially with her prolapse was difficult to do the exam, so she was brought in for colposcopy, hysteroscopy, and cystoscopy. Procedure In Detail: After informed consent was verified, she was taken back to OR, placed in supine fashion on the operating table. MAC was given. She was placed in a dorsal lithotomy position. Spe culum was placed to expose the cervix. Then, acetic acid was 0.25%. No acetow john epithelium was seen. So, I went ahead and applied vinegar to the cervix with the colposcope. V isualization was performed. No evidence of any dysplasia was seen. The cervix was curetted with the help of cytology brush was used to collect the specimen and this was handed off. Prep was done with Betadine after POP-Q was done as dictated above. No evidence of any other masses in the vaginal canal or labial area. The anterior lip of the cervix was injected with 5 cc of 1% lidocaine with epi. Then, at 4 and 8 o'c lock positions, a paracervical block was given with 6 cc each. Diagnostic SlimLine hysteroscope was used to enter the cervical canal and under direct visualization, the uterine cavity was entered. Cavity was unremarkable. No intracavitary lesions or irregularitie s. There was a tiny little area in the posterior wall that seemed slightly thick, but did not appear to be suspicious for any malignancy; however, once the scope was removed, cervix was dilated to 16-F rench and curettage was performed with a 0 curette paying attention to the posterior wall fissure. The specimens were scanned and handed off for permanent pathology. Then, the scope was used for cyst oscopy. The labial area was prepped as well as the periurethral area. Then, a 30-degree lens was used and no rmal saline for distention medium. Urethra was traversed under direct vision into the bladder. Both ureteric orifices were well visualized. The area above the trigone, trigone itself, lateral aparicio w ere all visualized and had no evidence of any abnormal lesions. The bladder was drained. Scope was removed. Instrument, needle, and sponge counts were correct at the end of the case. The patient tolerated the procedure well. She will follow up to me in 1 week. POP-Q as dicta aline above. ELISE/MEGHAN Voice ID: [id number] Report ID: [id number]
== END 2021-09-23 11:00 | disposition home or self-care (01) ==
LOC: OR 07:14
PROVIDERS: ATTEND Obstetrics & Gynecology
PROC: 0UJD8ZZ Inspection of Uterus and Cervix, Via Natural or Artificial Opening Endoscopic (ICD-10-PCS; 2021-09-23)
PROC: 0UJH8ZZ Inspection of Vagina and Cul-de-sac, Via Natural or Artificial Opening Endoscopic (ICD-10-PCS; 2021-09-23)
PROC: 0UDB7ZX Extraction of Endometrium, Via Natural or Artificial Opening, Diagnostic (ICD-10-PCS; principal; 2021-09-23 08:30)
DX: R87.613 High grade squamous intraepithelial lesion on cytologic smear of cervix (HGSIL) (principal); N32.81 Overactive bladder; N81.6 Rectocele; N95.2 Postmenopausal atrophic vaginitis; Z20.822 Contact with and (suspected) exposure to COVID-19
CPT/HCPCS: 88305; 58558; 57454; U0003; J2704 ×2; J2250; J3010; J7120; J2405

== ENCOUNTER 2022-05-29 15:10 | Emergency (ER) | payer MEDICARE ==
--- OUTSIDE RECORDS SUMMARY | 2022-05-29 15:15 | XMS REPORT | Continuity of Care Document ---
:1945 Author Organization [facility] t Address [address] [place] [address] Support Name Relationship Address Phone KIRSTEN NAVAS NI [address] [phone] [place] [address] IVANNAKIRSTEN NI [address] [phone] [place] [address] DENNY NAVAS NI [address] [phone] [place] [address] Rachell Roberson Friend Unavailable ODETTE KIMBALL Relative Unavailable Unavailable COOLEY MARIA, ODETTE Relative [address] [facility] Marlys [place] [address] KAMRONYOCASTAKIRSTEN Mijares Z [address] [place] [address] Reena Millereto, Relative [address] [facility] [place] [address] Brain Mayfield Unavailable [address] [facility] [phone] [place] [address] Edgar Navas Unavailable Unavailable [phone] Brain Mayfield Unavailable [address] [phone] [place] [address] Brain Mayfield Unavailable [address] [facility] [phone] [place] [address] Ketan Lea Brain Mayfield Unavailable [address] [phone] [place] [address] Shivani Westbrook Unavailable Unavailable [phone] Bell Velez Sister [address] [place], [place] Care Team Providers Name Role Phone INGRID BERMAN Primary Care Physician Unavailable Ingrid Berman Attending Clinician Unavailable OTILIO ARROYO Attending Clinician Unavailable Otilio Coello Attending Clinician KEVIN SELLERS Attending Clinician Unavailable Kevin Sellers NP Attending Clinician Rosemary Robles Attending Clinician Unavailable ALEYDA BERNSTEIN Attending Clinician Unavailable Lab, Adc Fam Pob I Attending Clinician Unavailable PIPO APARICIO Attending Clinician Unavailable Doctor Unassigned, Keller Attending Clinician Unavailable Lab, Pcp Covid Attending Clinician Unavailable REBECCA SMITH Attending Clinician Unavailable KEVIN SELLERS Admitting Clinician Unavailable Ingrid Berman. Admitting Clinician Unavailable Ivan Berman Admitting Clinician Unavailable Payers Payer Name Policy Type Policy Number Effective Date Expiration Date Jose Manuel meza FORMERLY [facility] MaintenanceNet [id number] 2018spring 00:00:00 [employer] [id number] 2021 MEDICARE 00:00:00 ADVANTAGE PLAN [employer] [id number] 2021 (MEDICARE 00:00:00 REPLACEMENT HMO) HUMAN MEDICARE C1 [id number] Common [facility] Problems Condition Condition Condition Status Onset Resolution Last Treating Co mments Source Name Details Category Date Date Treatment Clinician Date History of History of Disease Active Overview : Univers arthritis arthritis 3-19 Formattin i ty of 00:00: g of this [place] note Medical might be Branch different from the original. Added automatic ally from request for surgery [id number] History of History of Disease Active Overview : Univers diverticul diverticul 3-08 Formattin ity of itis itis 00:00: g of this [place] note Medical might be Branch different from the original. Added automatic ally from request for surgery [id number] Diverticul Diverticul Disease Active 2016-06 U nivers itis itis 2-06 ity of 00:00: [place] [address] Medical Branch Right knee Right knee Disease Active U nivers pain pain 6-22 ity of 00:00: [place] [address] Medical Branch Diverticul Diverticul Problem C cynthiamon a of a of Spirit intestine intestine - CH I [facility] Arthritis Arthritis Problem Com mon [facility] [id number] Pain in Problem Commo n joint of [facility] left wrist [facility] Constipati Constipati Problem C ommon on on, Spirit unspecifie - [facility] d [facility] Gastroesop Chronic Problem Comm on hageal gastroesop [facility] reflux hageal - [facility] disease reflux [facility] Urinary Urinary Problem Common frequency frequency Spir it [facility] Benign Hypertensi Problem Commo n essential on, Spirit hypertensi essential, - CHI on benign [facility] Peptic Peptic Problem Common ulcer ulcer [facility] disease disease [facility] Nocturia Nocturia Problem Commo n [facility] Mixed Mixed Problem Common hyperlipid hyperlipid Sp bright emia emia [facility] Diverticul Diverticul Problem C ommon osis of osis of [facility] colon colon - [facility] without without St diverticul diverticul Key s [facility] [id number] Adult BMI Problem Com mon 32.0-32.9 Spirit kg/sq m [facility] [id number] Mild major Problem Com mon depression [facility] , single - CHI episode [facility] [id number] Hypercalce Problem Com mon becka [facility] [id number] Stress Problem Common incontinen [facility] ce [facility] [id number] Primary Problem Comm on osteoarthr [facility] itis of [facility] right knee [facility] [id number] Primary Problem Comm on osteoarthr [facility] itis of [facility] left knee [facility] Diverticul Acquired Problem Com mon ar disease diverticul Sp bright of colon osis of - [facility] colon [facility] [id number] Overactive Problem Co mmon bladder [facility] [id number] Vitamin D Problem Comm on deficiency [facility] disease [facility] [id number] Other Problem Common chronic [facility] pain [facility] [id number] 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[facility] cervical [facility] [id number] Diverticul Problem Comm on itis of [facility] large [facility] intestine [facility] perforatio Medica l n or Center abscess without bleeding Allergies, Adverse Reactions, Alerts Allergy Allergy Status Severity Reaction(s) Onset Inactive Treating Comm ents Source Name Type Date Date Clinician No Known DA Active U [facility] Allergie 12-24 [place] [facility] 00:[facility]: [facility] CODEINE DRUG Active Other-Cmnt 2014-06 Unive rs INGREDI 07-09 ity of 00:00: [place] 00 Medical Branch Codeine Propensi Active Other - See 2014-06 Hyperacti Univers ty to comments 07-09 ve says ity of adverse 00:00: she is [place] reaction 00 not Medical s allergric Branch Social History Social Habit Start Date Stop Date Quantity Comments Source History of Common Spirit - Tobacco Use [facility] Exposure to 2022-03-07 2022-03-17 Not sure [facility] [place]-CoV-2 00:00:00 17:01:00 [facility] (event) Branch Alcohol intake 2013-01-12 2013-01-12 Current [facility] es 00:00:00 00:00:00 non-drinker of Medical nter alcohol (finding) Sex Ass[birth year] At [birth year] [facility] 00:00:00 00:00:00 [facility] Smoking Status Start Date Stop Date Source Never smoked tobacco [facility] Tobacco smoking consumption [facility] unknown Medications Ordered Filled Start Stop Current Ordering Indication Dosage Frequency Signature Comments Components Source Medication Medication Date Date Medication? Clinician (SIG) Name Name ProAir HFA ProAir HFA 2021-06 No 2{puffs ProAir HFA 108 (90 108 (90 0-05 _as_nee 108 (90 Base) Base) 00:00: ded} Base) MCG/ACT MCG/ACT 00 MCG/ACT Triamcinolo Triamcinolo 2021-06 No Triamcinol ne ne 0-05 one Acetonide Acetonide 00:00: Acetonide 0.1 % 0.1 % 00 0.1 % ProAir HFA ProAir HFA 2021-06 No 2{puffs ProAir HFA 108 (90 108 (90 0-05 _as_nee 108 (90 Base) Base) 00:00: ded} Base) MCG/ACT MCG/ACT 00 MCG/ACT Triamcinolo Triamcinolo 2021-06 No Triamcinol ne ne 0-05 one Acetonide Acetonide 00:00: Acetonide 0.1 % 0.1 % 00 0.1 % ProAir HFA ProAir HFA 2021-06 No 2{puffs ProAir HFA 108 (90 108 (90 0-05 _as_nee 108 (90 Base) Base) 00:00: ded} Base) MCG/ACT MCG/ACT 00 MCG/ACT Triamcinolo Triamcinolo 2021-06 No Triamcinol ne ne 0-05 one Acetonide Acetonide 00:00: Acetonide 0.1 % 0.1 % 00 0.1 % methylPREDN Yes [id number] Take by [facility] ISolone 03-17 mouth ity of (MEDROL, 00:00: SEE-INSTRU Hakeem as KENYON,) 4 mg 00 CTIONS. Medica l tablets follow Branch package directions triamcinolo Yes [id number] Apply to [facility] 03-17 area(s) 2 ity of acetonide 00:00: (two) [place] 0.1 % cream 00 times Medical daily. Branch fluconazole 2021- Yes [id number] 150mg Take 1 Univers 150 mg 03-17 tablet by ity of tablet 00:00: 04:59 [place] 00 :00 now for 1 Medical dose. Branch HYDROcodone 2021- No 1{tbl} 1 tablet, Univers -acetaminop 02-20 Oral, ity of hen (NORCO) 06:45: 06:03 [place]CE[place] 1 [place] 10-325 mg [place] :00 dose, On Medica l tablet 1 Wed02/20/22 [facility] h tablet at 0145, Routine iopamidol 2021- No [id number] 60mL 60 mL, Univers (ISOVUE 02-20 Intravenou ity o f 370-500 mL) 03:45: 03:45 s, ONCE, 1 [place] injection 00 :00 dose, On Medica l 60 mL Sofie 02/19/22 Branch at 2245, Routine dicyclomine 2021- No 20mg 20 mg, Uni vers (BENTYL) 02-20 Intramuscu ity of injection 03:30: 03:09 lar, ONCE, [place] 20 mg 00 :00 1 dose, On Medical Sfoie 02/19/22 Branch at 2230, Routine morpHINE (4 0 2021- No 4mg 4 mg, Slow Univers mg/mL) 02-20 IV Push, ity of injection 4 02:45: 03:09 ONCE, 1 [place] mg [place] :00 dose, On Medical Sofie 02/19/22 Branch at 2145, STAT ciprofloxac 2021-0 Yes [id number] 500mg Take 1 Univers in HCl 500 9-02 tablet by ity of mg tablet 00:00: mouth (two) Medical times Branch daily. metroNIDAZO 2021-0 Yes [id number] 500mg Take 1 Univers LE 500 mg 9-02 tablet by ity o f tablet 00:00: mouth (two) Medical times Branch daily. ondansetron 2021-0 Yes [id number] 4mg Take 1 Univers 4 mg 9-02 tablet by ity of disintegrat 00:00: mouth [place] ing tablet 00 every 8 Medica l (eight) Branch hours as needed for Nausea and Vomiting (N/V). dicyclomine 2021-0 Yes [id number] 10mg Take 1 Univers 10 mg 9-02 capsule by ity of capsule 00:00: mouth (four) Medical times Branch daily as needed for Abdominal pain. ciprofloxac 2021-0 Yes [id number] 500mg Take 1 Univers in HCl 500 9-02 tablet by ity of mg tablet 00:00: mouth (two) Medical times Branch daily. metroNIDAZO 2021-0 Yes [id number] 500mg Take 1 Univers LE 500 mg 9-02 tablet by ity o f tablet 00:00: mouth (two) Medical times Branch daily. ondansetron 2021-0 Yes [id number] 4mg Take 1 Univers 4 mg 9-02 tablet by ity of disintegrat 00:00: mouth [place] ing tablet 00 every 8 Medica l (eight) Branch hours as needed for Nausea and Vomiting (N/V). dicyclomine 2021-0 Yes [id number] 10mg Take 1 Univers 10 mg 9-02 capsule by ity of capsule 00:00: mouth (four) Medical times Branch daily as needed for Abdominal pain. Benzonatate Benzonatate 2021- No 1{capsu Benzonatat 200 MG 200 MG 07-08 le_as_n e 200 MG 00:00: 00:00 eeded} 00 :00 Azithromyci Azithromyci 2021- No QD Azithromyc n 250 MG n 250 MG 07-08 in 250 MG 00:00: 00:00 00 :00 predniSONE predniSONE 2021- No QD predniSONE 20 MG 20 MG 07-08 20 MG 00:00: 00:00 00 :00 mupirocin 2 Yes [id number] Apply to Univers % ointment 8-12 area(s) 3 ity of 00:00: (three) [place] 00 times Medical daily. Branch mupirocin 2 Yes [id number] Apply to Univers % ointment 8-12 area(s) 3 ity of 00:00: (three) [place] times Medical daily. Branch Kenalog Kenalog 2019-0 No 40mg Common (Triamcinol (Triamcinol 9-29 S pirit one) one) 00:00: - CHI [facility] Kenalog Kenalog 2020-0 No 40mg Common (Triamcinol (Triamcinol 9-29 S pirit one) one) 00:00: - CHI [facility] Kenalog Kenalog 2020-0 No 40mg Common (Triamcinol (Triamcinol 9-29 S pirit one) one) 00:00: - CHI [facility] Kenalog Kenalog 2020-0 No 40mg Common (Triamcinol (Triamcinol 9-29 S pirit one) one) 00:00: - CHI [facility] Kenalog Kenalog 2020-0 No 40mg Common (Triamcinol (Triamcinol 9-29 S pirit one) one) 00:00: - CHI [facility] Kenalog Kenalog 2020-0 No 40mg Common (Triamcinol (Triamcinol 9-29 S pirit one) one) 00:00: - CHI [facility] Kenalog Kenalog 2020-0 No 40mg Common (Triamcinol (Triamcinol 9-29 S pirit one) one) 00:00: - CHI 00 [facility] Kenalog Kenalog 2020-0 No 40mg Common (Triamcinol (Triamcinol 9-29 S pirit one) one) 00:00: - CHI 00 [facility] Kenalog Kenalog 2020-0 No 40mg Common (Triamcinol (Triamcinol 9-29 S pirit one) one) 00:00: - CHI 00 [facility] Kenalog Kenalog 2020-0 No 40mg Common (Triamcinol (Triamcinol 9-29 S pirit one) one) 00:00: - CHI 00 [facility] Kenalog Kenalog 2020-0 No 40mg Common (Triamcinol (Triamcinol 9-29 S pirit one) one) 00:00: - CHI 00 [facility] Kenalog Kenalog 2020-0 No 40mg Common (Triamcinol (Triamcinol 9-29 S pirit one) one) 00:00: - CHI 00 [facility] Kenalog Kenalog 2020-0 No 40mg Common (Triamcinol (Triamcinol 9-29 S pirit one) one) 00:00: - CHI 00 [facility] Kenalog Kenalog 2020-0 No 40mg Common (Triamcinol (Triamcinol 9-29 S pirit one) one) 00:00: - CHI 00 [facility] Linzess Linzess 2019-0 2020- No Ingrid 1 capsule Common 03-06 Berman at least Spirit 00:00: 00:00 30 minutes - CHI 00 :[address] meal [facility] of the day [facility] on [facility] empty stomach Vitamin D3 Vitamin D3 2019-0 2020- No Ingrid 1 capsule Common 03-06 Berman Spirit 00:00: 00:00 - CHI 00 :00 [facility] Myrbetriq Myrbetriq 2018- 2020- No Ingrid 1 tablet Common 06-25 Berman Spirit 00:00: 00:00 - CHI 00 :00 [facility] omeprazole 2018-0 Yes 20mg Take 20 mg U nivers (PRILOSEC) 4-29 by mouth ity o f 20 mg 14:45: daily. [place] capsule 11 Medical Branch omeprazole 2019-0 Yes 20mg Take 20 mg U nivers (PRILOSEC) 4-29 by mouth ity o f 20 mg 14:45: daily. [place] capsule 11 Medical Branch lisinopril 2019-0 Yes 10mg Take 10 mg U nivers (PRINIVIL,Z 4-29 by mouth ity of ESTRIL) 10 14:44: daily. [place] mg tablet 32 Medical Branch lisinopril 2019-0 Yes 10mg Take 10 mg U nivers (PRINIVIL,Z 4-29 by mouth ity of ESTRIL) 10 14:44: daily. [place] mg tablet 32 Medical Branch meloxicam 2018-0 Yes 15mg Take 2 Univer s 7.5 mg 9-04 tablets by ity of tablet 00:00: mouth [place] 00 daily. Medical Branch meloxicam 2018-0 Yes 15mg Take 2 Univer s 7.5 mg 9-04 tablets by ity of tablet 00:00: mouth [place] 00 daily. Medical Branch acetaminoph 2018-0 Yes 650mg Take 650 U nivers en (TYLENOL 4-11 mg by ity of ARTHRITIS 14:43: mouth [place] PAIN) 650 28 every 8 Medical mg CR (eight) Branch tablet hours as needed for Pain. pravastatin 2018-0 Yes 10mg Take 10 mg Univers 10 mg 4-11 by mouth ity of tablet 14:43: at [place] [address] bedtime. Medical Branch acetaminoph 0 Yes 650mg Take 650 U nivers en (TYLENOL 4-11 mg by ity of ARTHRITIS 14:43: mouth [place] PAIN) 650 28 every 8 Medical mg CR (eight) Branch tablet hours as needed for Pain. pravastatin 2018-0 Yes 10mg Take 10 mg Univers 10 mg 4-11 by mouth ity of tablet 14:43: at [place] 28 bedtime. Medical Branch traMADOL 50 2018-0 Yes 50mg Take 1 Univ ers mg tablet 4-11 tablet by ity o f 00:00: mouth [place] 00 every 6 Medical (six) Branch hours as needed for Pain (scale 4-6). traMADOL 50 2018-0 Yes 50mg Take 1 Univ ers mg tablet 4-11 tablet by ity o f 00:00: mouth [place] 00 every 6 Medical (six) Branch hours as needed for Pain (scale 4-6). diclofenac 2017 Yes 75mg Take 1 Unive rs 75 mg EC 1-29 tablet by ity of tablet 00:00: mouth 2 [place] (two) Medical times [place] daily with meals. diclofenac 2016-06 Yes 75mg Take 1 Unive rs 75 mg EC 1-29 tablet by ity of tablet 00:00: mouth 2 [place] (two) Medical times [place] daily with meals. montelukast 2015-06 Yes 10mg Take 10 mg Univers (SINGULAIR) 0-12 by mouth ity of 10 mg 00:00: daily. [place] tablet [facility] montelukast 2015-06 Yes 10mg Take 10 mg Univers (SINGULAIR) 0-12 by mouth ity of 10 mg 00:00: daily. [place] tablet [facility] fluticasone Yes 1{spray Use 1 Un [place] 50 6-08 } [place] in ity of mcg/actuati 00:00: each [place] on nasal 00 nostril Medical spray daily. Branch fluticasone Yes 1{spray Use 1 Un [place] 50 6-08 } [place] in ity of mcg/actuati 00:00: each [place] on nasal 00 nostril Medical spray daily. Branch omeprazole Yes 20mg QD Take [address] (PRILOSEC) 7-25 by mouth [facility] 20 MG 14:32: daily. Medical capsule Center Ezetimibe Ezetimibe Yes Ingrid 1 tablet Common [facility]erman [facility] Lisinopril Lisinopril Yes Ingrid 1 tablet Common [facility] Spirit [facility] Omeprazole Omeprazole Yes Ingrid 1 capsule Common [facility] Spirit [facility] Simvastatin Simvastatin Yes Ingrid 1 tablet Common [facility]erman in the [facility] evening [facility] Simvastatin Simvastatin No 1{table QD Simvastati 40 MG 40 MG t_in_th n 40 MG e_eveni ng} Vitamin D3 Vitamin D3 No 1{capsu Vitamin D3 15311 UNIT 33346 UNIT le} 97807 UNIT Simvastatin Simvastatin No Simvastati 40 MG 40 MG n 40 MG Pantoprazol Pantoprazol No 1{table QD Pantoprazo e Sodium 40 e Sodium 40 t} le Sodium MG MG 40 MG Omeprazole Omeprazole No 1{capsu QD Omeprazole 20 MG 20 MG le} 20 MG Ezetimibe Ezetimibe No Ezetimibe 10 MG 10 MG 10 MG Ezetimibe Ezetimibe No 1{table QD Ezetimibe 10 MG 10 MG t} 10 MG Linzess 145 Linzess 145 No QD Linzess MCG MCG 145 MCG Lisinopril Lisinopril No 1{table QD Lisinopril 10 MG 10 MG t} 10 MG Ezetimibe Ezetimibe No 1{table QD Ezetimibe 10 MG 10 MG t} 10 MG Simvastatin Simvastatin No 1{table QD Simvastati 40 MG 40 MG t_in_th n 40 MG e_eveni ng} Myrbetriq Myrbetriq No 1{table QD Myrbetriq 50 MG 50 MG t} 50 MG Vitamin D3 Vitamin D3 No 1{capsu Vitamin D3 24493 UNIT 00539 UNIT le} 79716 UNIT Simvastatin Simvastatin No Simvastati 40 MG 40 MG n 40 MG Pantoprazol Pantoprazol No 1{table QD Pantoprazo e Sodium 40 e Sodium 40 t} le Sodium MG MG 40 MG Omeprazole Omeprazole No 1{capsu QD Omeprazole 20 MG 20 MG le} 20 MG Vitamin D3 Vitamin D3 No 1{capsu Vitamin D3 41125 UNIT 57180 UNIT le} 45427 UNIT Pantoprazol Pantoprazol No 1{table BID Pantoprazo e Sodium 40 e Sodium 40 t} le Sodium MG MG 40 MG Omeprazole Omeprazole No 1{capsu QD Omeprazole 20 MG 20 MG le} 20 MG Docusate Docusate No Docusate Sodium Sodium Sodium levoFLOXaci levoFLOXaci No levoFLOXac n 500 MG n 500 MG in 500 MG metroNIDAZO metroNIDAZO No metroNIDAZ LE 500 MG LE 500 MG OLE 500 MG Ezetimibe Ezetimibe No Ezetimibe 10 MG 10 MG 10 MG Lisinopril Lisinopril No 1{table QD Lisinopril 10 MG 10 MG t} 10 MG Simvastatin Simvastatin No 1{table QD Simvastati 40 MG 40 MG t_in_th n 40 MG e_eveni ng} Cyclobenzap Cyclobenzap No 1{table Cyclobenza rine HCl 10 rine HCl 10 t_as_ne mahin HCl MG MG eded} 10 MG Ezetimibe Ezetimibe No 1{table QD Ezetimibe 10 MG 10 MG t} 10 MG Myrbetriq Myrbetriq No 1{table QD Myrbetriq 50 MG 50 MG t} 50 MG predniSONE predniSONE No predniSONE 20 MG 20 MG 20 MG Lisinopril Lisinopril No Lisinopril 10 MG 10 MG 10 MG Linzess 145 Linzess 145 No QD Linzess MCG MCG 145 MCG Cyclobenzap Cyclobenzap No 1{table Cyclobenza rine HCl 10 rine HCl 10 t_as_ne mahin HCl MG MG eded} 10 MG Pantoprazol Pantoprazol No 1{table BID Pantoprazo e Sodium 40 e Sodium 40 t} le Sodium MG MG 40 MG Vitamin D3 Vitamin D3 No 1{capsu Vitamin D3 63770 UNIT 63810 UNIT le} 49179 UNIT Lisinopril Lisinopril No Lisinopril 10 MG 10 MG 10 MG Docusate Docusate No Docusate Sodium Sodium Sodium metroNIDAZO metroNIDAZO No metroNIDAZ LE 500 MG LE 500 MG OLE 500 MG Ezetimibe Ezetimibe No Ezetimibe 10 MG 10 MG 10 MG Omeprazole Omeprazole No 1{capsu QD Omeprazole 20 MG 20 MG le} 20 MG Linzess 145 Linzess 145 No QD Linzess MCG MCG 145 MCG predniSONE predniSONE No predniSONE 20 MG 20 MG 20 MG Simvastatin Simvastatin No 1{table QD Simvastati 40 MG 40 MG t_in_th n 40 MG e_eveni ng} Lisinopril Lisinopril No 1{table QD Lisinopril 10 MG 10 MG t} 10 MG levoFLOXaci levoFLOXaci No levoFLOXac n 500 MG n 500 MG in 500 MG Myrbetriq Myrbetriq No 1{table QD Myrbetriq 50 MG 50 MG t} 50 MG Ezetimibe Ezetimibe No 1{table QD Ezetimibe 10 MG 10 MG t} 10 MG Cyclobenzap Cyclobenzap No 1{table Cyclobenza rine HCl 10 rine HCl 10 t_as_ne mahin HCl MG MG eded} 10 MG Pantoprazol Pantoprazol No 1{table BID Pantoprazo e Sodium 40 e Sodium 40 t} le Sodium MG MG 40 MG Vitamin D3 Vitamin D3 No 1{capsu Vitamin D3 35994 UNIT 34067 UNIT le} 67442 UNIT Lisinopril Lisinopril No Lisinopril 10 MG 10 MG 10 MG Docusate Docusate No Docusate Sodium Sodium Sodium metroNIDAZO metroNIDAZO No metroNIDAZ LE 500 MG LE 500 MG OLE 500 MG Ezetimibe Ezetimibe No Ezetimibe 10 MG 10 MG 10 MG Omeprazole Omeprazole No 1{capsu QD Omeprazole 20 MG 20 MG le} 20 MG Linzess 145 Linzess 145 No QD Linzess MCG MCG 145 MCG predniSONE predniSONE No predniSONE 20 MG 20 MG 20 MG Simvastatin Simvastatin No 1{table QD Simvastati 40 MG 40 MG t_in_th n 40 MG e_eveni ng} Lisinopril Lisinopril No 1{table QD Lisinopril 10 MG 10 MG t} 10 MG levoFLOXaci levoFLOXaci No levoFLOXac n 500 MG n 500 MG in 500 MG Myrbetriq Myrbetriq No 1{table QD Myrbetriq 50 MG 50 MG t} 50 MG Ezetimibe Ezetimibe No 1{table QD Ezetimibe 10 MG 10 MG t} 10 MG Cyclobenzap Cyclobenzap No 1{table Cyclobenza rine HCl 10 rine HCl 10 t_as_ne mahin HCl MG MG eded} 10 MG Pantoprazol Pantoprazol No 1{table BID Pantoprazo e Sodium 40 e Sodium 40 t} le Sodium MG MG 40 MG Docusate Docusate No Docusate Sodium Sodium Sodium metroNIDAZO metroNIDAZO No metroNIDAZ LE 500 MG LE 500 MG OLE 500 MG Lisinopril Lisinopril No Lisinopril 10 MG 10 MG 10 MG levoFLOXaci levoFLOXaci No levoFLOXac n 500 MG n 500 MG in 500 MG Ezetimibe Ezetimibe No Ezetimibe 10 MG 10 MG 10 MG Omeprazole Omeprazole No 1{capsu QD Omeprazole 20 MG 20 MG le} 20 MG Vitamin D3 Vitamin D3 No 1{capsu Vitamin D3 02783 UNIT 43522 UNIT le} 24841 UNIT predniSONE predniSONE No predniSONE 20 MG 20 MG 20 MG Myrbetriq Myrbetriq No 1{table QD Myrbetriq 50 MG 50 MG t} 50 MG Lisinopril Lisinopril No 1{table QD Lisinopril 10 MG 10 MG t} 10 MG Simvastatin Simvastatin No Simvastati 40 MG 40 MG n 40 MG Linzess 145 Linzess 145 No QD Linzess MCG MCG 145 MCG Ezetimibe Ezetimibe No 1{table QD Ezetimibe 10 MG 10 MG t} 10 MG Vitamin D3 Vitamin D3 No 1{capsu Vitamin D3 66585 UNIT 93813 UNIT le} 44436 UNIT metroNIDAZO metroNIDAZO No metroNIDAZ LE 500 MG LE 500 MG OLE 500 MG Omeprazole Omeprazole No 1{capsu QD Omeprazole 20 MG 20 MG le} 20 MG Lisinopril Lisinopril No 1{table QD Lisinopril 10 MG 10 MG t} 10 MG Cyclobenzap Cyclobenzap No 1{table Cyclobenza rine HCl 10 rine HCl 10 t_as_ne mahin HCl MG MG eded} 10 MG Myrbetriq Myrbetriq No 1{table QD Myrbetriq 50 MG 50 MG t} 50 MG Simvastatin Simvastatin No Simvastati 40 MG 40 MG n 40 MG Lisinopril Lisinopril No Lisinopril 10 MG 10 MG 10 MG Docusate Docusate No Docusate Sodium Sodium Sodium Ezetimibe Ezetimibe No Ezetimibe 10 MG 10 MG 10 MG Pantoprazol Pantoprazol No 1{table BID Pantoprazo e Sodium 40 e Sodium 40 t} le Sodium MG MG 40 MG Linzess 145 Linzess 145 No QD Linzess MCG MCG 145 MCG levoFLOXaci levoFLOXaci No levoFLOXac n 500 MG n 500 MG in 500 MG Pantoprazol Pantoprazol No 1{table BID Pantoprazo e Sodium 40 e Sodium 40 t} le Sodium MG MG 40 MG Omeprazole Omeprazole No 1{capsu QD Omeprazole 20 MG 20 MG le} 20 MG Lisinopril Lisinopril No 1{table QD Lisinopril 10 MG 10 MG t} 10 MG Cyclobenzap Cyclobenzap No 1{table Cyclobenza rine HCl 10 rine HCl 10 t_as_ne mahin HCl MG MG eded} 10 MG Myrbetriq Myrbetriq No 1{table QD Myrbetriq 50 MG 50 MG t} 50 MG levoFLOXaci levoFLOXaci No levoFLOXac n 500 MG n 500 MG in 500 MG Docusate Docusate No Docusate Sodium Sodium Sodium Lisinopril Lisinopril No Lisinopril 10 MG 10 MG 10 MG Vitamin D3 Vitamin D3 No 1{capsu Vitamin D3 01782 UNIT 01230 UNIT le} 75190 UNIT Simvastatin Simvastatin No Simvastati 40 MG 40 MG n 40 MG metroNIDAZO metroNIDAZO No metroNIDAZ LE 500 MG LE 500 MG OLE 500 MG Linzess 145 Linzess 145 No QD Linzess MCG MCG 145 MCG Ezetimibe Ezetimibe No Ezetimibe 10 MG 10 MG 10 MG Myrbetriq Myrbetriq No 1{table QD Myrbetriq 50 MG 50 MG t} 50 MG Simvastatin Simvastatin No 1{table QD Simvastati 40 MG 40 MG t_in_th n 40 MG e_eveni ng} Omeprazole Omeprazole No 1{capsu QD Omeprazole 20 MG 20 MG le} 20 MG Linzess 145 Linzess 145 No QD Linzess MCG MCG 145 MCG Lisinopril Lisinopril No 1{table QD Lisinopril 10 MG 10 MG t} 10 MG Vitamin D3 Vitamin D3 No 1{capsu Vitamin D3 58353 UNIT 85824 UNIT le} 99654 UNIT Ezetimibe Ezetimibe No 1{table QD Ezetimibe 10 MG 10 MG t} 10 MG Myrbetriq Myrbetriq No 1{table QD Myrbetriq 50 MG 50 MG t} 50 MG Simvastatin Simvastatin No 1{table QD Simvastati 40 MG 40 MG t_in_th n 40 MG e_eveni ng} Omeprazole Omeprazole No 1{capsu QD Omeprazole 20 MG 20 MG le} 20 MG Linzess 145 Linzess 145 No QD Linzess MCG MCG 145 MCG Lisinopril Lisinopril No 1{table QD Lisinopril 10 MG 10 MG t} 10 MG Vitamin D3 Vitamin D3 No 1{capsu Vitamin D3 23243 UNIT 66127 UNIT le} 39114 UNIT Ezetimibe Ezetimibe No 1{table QD Ezetimibe 10 MG 10 MG t} 10 MG Ezetimibe Ezetimibe No Ezetimibe 10 MG 10 MG 10 MG Myrbetriq Myrbetriq No 1{table QD Myrbetriq 50 MG 50 MG t} 50 MG Linzess 145 Linzess 145 No QD Linzess MCG MCG 145 MCG Pantoprazol Pantoprazol No 1{table QD Pantoprazo e Sodium 40 e Sodium 40 t} le Sodium MG MG 40 MG Simvastatin Simvastatin No 1{table QD Simvastati 40 MG 40 MG t_in_th n 40 MG e_eveni ng} Lisinopril Lisinopril No 1{table QD Lisinopril 10 MG 10 MG t} 10 MG Simvastatin Simvastatin No Simvastati 40 MG 40 MG n 40 MG Vitamin D3 Vitamin D3 No 1{capsu Vitamin D3 05773 UNIT 02198 UNIT le} 14336 UNIT Omeprazole Omeprazole No 1{capsu QD Omeprazole 20 MG 20 MG le} 20 MG Ezetimibe Ezetimibe No 1{table QD Ezetimibe 10 MG 10 MG t} 10 MG Ezetimibe Ezetimibe No Ezetimibe 10 MG 10 MG 10 MG Myrbetriq Myrbetriq No 1{table QD Myrbetriq 50 MG 50 MG t} 50 MG Linzess 145 Linzess 145 No QD Linzess MCG MCG 145 MCG Pantoprazol Pantoprazol No 1{table QD Pantoprazo e Sodium 40 e Sodium 40 t} le Sodium MG MG 40 MG Simvastatin Simvastatin No 1{table QD Simvastati 40 MG 40 MG t_in_th n 40 MG e_eveni ng} Lisinopril Lisinopril No 1{table QD Lisinopril 10 MG 10 MG t} 10 MG Simvastatin Simvastatin No Simvastati 40 MG 40 MG n 40 MG Vitamin D3 Vitamin D3 No 1{capsu Vitamin D3 85723 UNIT 49730 UNIT le} 36046 UNIT Omeprazole Omeprazole No 1{capsu QD Omeprazole 20 MG 20 MG le} 20 MG Ezetimibe Ezetimibe No 1{table QD Ezetimibe 10 MG 10 MG t} 10 MG Ezetimibe Ezetimibe No Ezetimibe 10 MG 10 MG 10 MG Myrbetriq Myrbetriq No 1{table QD Myrbetriq 50 MG 50 MG t} 50 MG Linzess 145 Linzess 145 No QD Linzess MCG MCG 145 MCG Pantoprazol Pantoprazol No 1{table QD Pantoprazo e Sodium 40 e Sodium 40 t} le Sodium MG MG 40 MG Simvastatin Simvastatin No 1{table QD Simvastati 40 MG 40 MG t_in_th n 40 MG e_eveni ng} Lisinopril Lisinopril No 1{table QD Lisinopril 10 MG 10 MG t} 10 MG Simvastatin Simvastatin No Simvastati 40 MG 40 MG n 40 MG Vitamin D3 Vitamin D3 No 1{capsu Vitamin D3 88216 UNIT 46780 UNIT le} 85183 UNIT Omeprazole Omeprazole No 1{capsu QD Omeprazole 20 MG 20 MG le} 20 MG Ezetimibe Ezetimibe No 1{table QD Ezetimibe 10 MG 10 MG t} 10 MG Ezetimibe Ezetimibe No Ezetimibe 10 MG 10 MG 10 MG Myrbetriq Myrbetriq No 1{table QD Myrbetriq 50 MG 50 MG t} 50 MG Linzess 145 Linzess 145 No QD Linzess MCG MCG 145 MCG Pantoprazol Pantoprazol No 1{table QD Pantoprazo e Sodium 40 e Sodium 40 t} le Sodium MG MG 40 MG Simvastatin Simvastatin No 1{table QD Simvastati 40 MG 40 MG t_in_th n 40 MG e_eveni ng} Lisinopril Lisinopril No 1{table QD Lisinopril 10 MG 10 MG t} 10 MG Simvastatin Simvastatin No Simvastati 40 MG 40 MG n 40 MG Vitamin D3 Vitamin D3 No 1{capsu Vitamin D3 12952 UNIT 12992 UNIT le} 18793 UNIT Omeprazole Omeprazole No 1{capsu QD Omeprazole 20 MG 20 MG le} 20 MG Ezetimibe Ezetimibe No 1{table QD Ezetimibe 10 MG 10 MG t} 10 MG Pantoprazol Pantoprazol No 1{table QD Pantoprazo e Sodium 40 e Sodium 40 t} le Sodium MG MG 40 MG Myrbetriq Myrbetriq No 1{table QD Myrbetriq 50 MG 50 MG t} 50 MG Linzess 145 Linzess 145 No QD Linzess MCG MCG 145 MCG Simvastatin Simvastatin No 1{table QD Simvastati 40 MG 40 MG t_in_th n 40 MG e_eveni ng} Vitamin D3 Vitamin D3 No 1{capsu Vitamin D3 41334 UNIT 49793 UNIT le} 96898 UNIT Simvastatin Simvastatin No Simvastati 40 MG 40 MG n 40 MG Ezetimibe Ezetimibe No Ezetimibe 10 MG 10 MG 10 MG Omeprazole Omeprazole No 1{capsu QD Omeprazole 20 MG 20 MG le} 20 MG Lisinopril Lisinopril No 1{table QD Lisinopril 10 MG 10 MG t} 10 MG Ezetimibe Ezetimibe No 1{table QD Ezetimibe 10 MG 10 MG t} 10 MG Lisinopril Lisinopril No 1{table QD Lisinopril 10 MG 10 MG t} 10 MG Myrbetriq Myrbetriq No 1{table QD Myrbetriq 50 MG 50 MG t} 50 MG Linzess 145 Linzess 145 No QD Linzess MCG MCG 145 MCG Simvastatin Simvastatin No 1{table QD Simvastati 40 MG 40 MG t_in_th n 40 MG e_eveni ng} Vitamin D3 Vitamin D3 No 1{capsu Vitamin D3 84046 UNIT 02176 UNIT le} 09524 UNIT Simvastatin Simvastatin No Simvastati 40 MG 40 MG n 40 MG Pantoprazol Pantoprazol No 1{table QD Pantoprazo e Sodium 40 e Sodium 40 t} le Sodium MG MG 40 MG Omeprazole Omeprazole No 1{capsu QD Omeprazole 20 MG 20 MG le} 20 MG Ezetimibe Ezetimibe No Ezetimibe 10 MG 10 MG 10 MG Ezetimibe Ezetimibe No 1{table QD Ezetimibe 10 MG 10 MG t} 10 MG Linzess 145 Linzess 145 No QD Linzess MCG MCG 145 MCG Lisinopril Lisinopril No 1{table QD Lisinopril 10 MG 10 MG t} 10 MG Ezetimibe Ezetimibe No 1{table QD Ezetimibe 10 MG 10 MG t} 10 MG Simvastatin Simvastatin No 1{table QD Simvastati 40 MG 40 MG t_in_th n 40 MG e_eveni ng} Myrbetriq Myrbetriq No 1{table QD Myrbetriq 50 MG 50 MG t} 50 MG Vitamin D3 Vitamin D3 No 1{capsu Vitamin D3 22826 UNIT 12711 UNIT le} 07162 UNIT Simvastatin Simvastatin No Simvastati 40 MG 40 MG n 40 MG Pantoprazol Pantoprazol No 1{table QD Pantoprazo e Sodium 40 e Sodium 40 t} le Sodium MG MG 40 MG Omeprazole Omeprazole No 1{capsu QD Omeprazole 20 MG 20 MG le} 20 MG Pantoprazol Pantoprazol No 1{table QD Pantoprazo e Sodium 40 e Sodium 40 t} le Sodium MG MG 40 MG Ezetimibe Ezetimibe No 1{table QD Ezetimibe 10 MG 10 MG t} 10 MG Simvastatin Simvastatin No Simvastati 40 MG 40 MG n 40 MG Simvastatin Simvastatin No 1{table QD Simvastati 40 MG 40 MG t_in_th n 40 MG e_eveni ng} Lisinopril Lisinopril No 1{table QD Lisinopril 10 MG 10 MG t} 10 MG Myrbetriq Myrbetriq No 1{table QD Myrbetriq 50 MG 50 MG t} 50 MG Omeprazole Omeprazole No 1{capsu QD Omeprazole 20 MG 20 MG le} 20 MG Vitamin D3 Vitamin D3 No 1{capsu Vitamin D3 75926 UNIT 86105 UNIT le} 74058 UNIT Linzess 145 Linzess 145 No QD Linzess MCG MCG 145 MCG Pantoprazol Pantoprazol No 1{table QD Pantoprazo e Sodium 40 e Sodium 40 t} le Sodium MG MG 40 MG Ezetimibe Ezetimibe No 1{table QD Ezetimibe 10 MG 10 MG t} 10 MG Simvastatin Simvastatin No Simvastati 40 MG 40 MG n 40 MG Simvastatin Simvastatin No 1{table QD Simvastati 40 MG 40 MG t_in_th n 40 MG e_eveni ng} Lisinopril Lisinopril No 1{table QD Lisinopril 10 MG 10 MG t} 10 MG Myrbetriq Myrbetriq No 1{table QD Myrbetriq 50 MG 50 MG t} 50 MG Omeprazole Omeprazole No 1{capsu QD Omeprazole 20 MG 20 MG le} 20 MG Vitamin D3 Vitamin D3 No 1{capsu Vitamin D3 37978 UNIT 55704 UNIT le} 92595 UNIT Linzess 145 Linzess 145 No QD Linzess MCG MCG 145 MCG Pantoprazol Pantoprazol No 1{table QD Pantoprazo e Sodium 40 e Sodium 40 t} le Sodium MG MG 40 MG Ezetimibe Ezetimibe No 1{table QD Ezetimibe 10 MG 10 MG t} 10 MG Simvastatin Simvastatin No Simvastati 40 MG 40 MG n 40 MG Simvastatin Simvastatin No 1{table QD Simvastati 40 MG 40 MG t_in_th n 40 MG e_eveni ng} Lisinopril Lisinopril No 1{table QD Lisinopril 10 MG 10 MG t} 10 MG Myrbetriq Myrbetriq No 1{table QD Myrbetriq 50 MG 50 MG t} 50 MG Omeprazole Omeprazole No 1{capsu QD Omeprazole 20 MG 20 MG le} 20 MG Vitamin D3 Vitamin D3 No 1{capsu Vitamin D3 41747 UNIT 90656 UNIT le} 41813 UNIT Linzess 145 Linzess 145 No QD Linzess MCG MCG 145 MCG Lisinopril Lisinopril No 1{table QD Lisinopril 10 MG 10 MG t} 10 MG Myrbetriq Myrbetriq No 1{table QD Myrbetriq 50 MG 50 MG t} 50 MG Linzess 145 Linzess 145 No QD Linzess MCG MCG 145 MCG Immunizations Ordered Filled Immunization Date Status Comments [facility] e Immunization Name Name FluAD FluAD 2021-03-20 [facility] FluAD FluAD 2021-03-20 [facility]00 [facility] FluAD FluAD 2021-03-20 [facility] 14::00 [facility] FluAD FluAD 2021-03-20 [facility] 14::00 [facility] FluAD FluAD 2021-03-20 [facility] 14::00 [facility] FluAD FluAD 2021-03-20 [facility] 14::00 [facility] FluAD FluAD 2021-03-20 Com[facility] 14::00 [facility] FluAD FluAD 2021-03-20 [facility] 14:21:00 [facility] FluAD FluAD 2021-03-20 Com[facility] 14:21:00 [facility] FluAD FluAD 2021-03-20 Com[facility] 14:21:00 [facility] FluAD FluAD 2021-03-20 [facility] 14::00 [facility] FluAD FluAD 2021-03-20 Com[facility] 14::00 [facility] FluAD FluAD 2021-03-20 Com[facility] 14::00 [facility] FluAD FluAD 2021-03-20 Completed [facility] 14:21:00 [facility] FluAD FluAD 2021-03-20 Completed [facility] 14:21:00 [facility] FluAD FluAD 2021-03-20 Completed [facility] - 14:21:00 [facility] FluAD FluAD 2021-03-20 Completed [facility] - 14:21:00 [facility] FluAD FluAD 2021-03-20 Completed [facility] 14:21:00 [facility] FluAD FluAD 2021-03-20 Completed [facility] 14:21:00 [facility] FluAD FluAD 2021-03-20 Completed [facility] 14:21:00 [facility] Moderna COVID-19 Moderna COVID-19 2020-09-18 Com[facility] Vaccine Vaccine 09:57:00 [facility] Moderna COVID-19 Moderna COVID-19 2020-09-18 Completed [facility] Vacc[facility] Vaccine 09:57:00 [facility] Moderna COVID-19 Moderna COVID-19 2020-09-18 Completed [facility] Vaccine Vaccine 09:57:00 [facility] Moderna COVID-19 Moderna COVID-19 2020-09-18 Completed [facility] Vaccine Vaccine 09:57:00 [facility] Moderna COVID-19 Moderna COVID-19 2020-09-18 Completed [facility] Vaccine Vaccine 09:57:00 [facility] Moderna COVID-19 Moderna COVID-19 2020-09-18 Completed [facility] Vaccine Vaccine 09:57:00 [facility] Moderna COVID-19 Moderna COVID-19 2020-09-18 Completed [facility] Vacc[facility] Vaccine 09:57:00 [facility] Moderna COVID-19 Moderna COVID-19 2020-09-18 Completed [facility] Vacc[facility] Vaccine 09:57:00 [facility] Moderna COVID-19 Moderna COVID-19 2020-09-18 Completed [facility] Vaccine Vaccine 09:57:00 [facility] Moderna COVID-19 Moderna COVID-19 2020-09-18 Completed [facility] Vaccine Vaccine 09:57:00 [facility] Moderna COVID-19 Moderna COVID-19 2020-09-18 Completed [facility] Vaccine Vaccine 09:57:00 [facility] Moderna COVID-19 Moderna COVID-19 2020-09-18 Completed [facility] Vaccine Vaccine 09:57:00 [facility] Moderna COVID-19 Moderna COVID-19 2020-09-18 Completed [facility] Vaccine Vaccine 09:57:00 [facility] Moderna COVID-19 Moderna COVID-19 2020-09-18 Completed [facility] Vaccine Vaccine 09:57:00 [facility] Moderna COVID-19 Moderna COVID-19 2020-09-18 Completed [facility] Vaccine Vaccine 09:57:00 [facility] Moderna COVID-19 Moderna COVID-19 2020-09-18 Completed [facility] Vaccine Vaccine 09:57:00 [facility] Moderna COVID-19 Moderna COVID-19 2020-09-18 Completed [facility] Vaccine Vaccine 09:57:00 [facility] Moderna COVID-19 Moderna COVID-19 2020-09-18 Completed [facility] Vaccine Vaccine 09:57:00 [facility] Moderna COVID-19 Moderna COVID-19 2020-09-18 Completed [facility] Vaccine Vaccine 09:57:00 [facility] Moderna COVID-19 Moderna COVID-19 2020-09-18 Completed [facility] Vaccine Vaccine 09:57:00 [facility] Moderna COVID-19 Moderna COVID-19 2020-08-21 Completed [facility] Vaccine Vaccine 09:57:00 [facility] Moderna COVID-19 Moderna COVID-19 2020-08-21 Completed [facility] Vaccine Vaccine 09:57:00 [facility] Moderna COVID-19 Moderna COVID-19 2020-08-21 Completed [facility] Vaccine Vaccine 09:57:00 [facility] Moderna COVID-19 Moderna COVID-19 2020-08-21 Completed [facility] Vaccine Vaccine 09:57:00 [facility] Moderna COVID-19 Moderna COVID-19 2020-08-21 Completed [facility] Vaccine Vaccine 09:57:00 [facility] Moderna COVID-19 Moderna COVID-19 2020-08-21 Completed [facility] Vaccine Vaccine 09:57:00 [facility] Moderna COVID-19 Moderna COVID-19 2020-08-21 Completed [facility] Vaccine Vaccine 09:57:00 [facility] Moderna COVID-19 Moderna COVID-19 2020-08-21 Completed [facility] Vaccine Vaccine 09:57:00 [facility] Moderna COVID-19 Moderna COVID-19 2020-08-21 Completed [facility] - Vaccine Vaccine 09:57:00 [facility] Moderna COVID-19 Moderna COVID-19 2020-08-21 Completed [facility] Vaccine Vaccine 09:57:00 [facility] Moderna COVID-19 Moderna COVID-19 2020-08-21 Completed [facility] Vaccine Vaccine 09:57:00 [facility] Moderna COVID-19 Moderna COVID-19 2020-08-21 Completed [facility] Vaccine Vaccine 09:57:00 [facility] Moderna COVID-19 Moderna COVID-19 2020-08-21 Completed [facility] Vaccine Vaccine 09:57:00 [facility] Moderna COVID-19 Moderna COVID-19 2020-08-21 Completed [facility] Vaccine Vaccine 09:57:00 [facility] Moderna COVID-19 Moderna COVID-19 2020-08-21 Completed [facility] Vaccine Vaccine 09:57:00 [facility] Moderna COVID-19 Moderna COVID-19 2020-08-21 Completed [facility] Vaccine Vaccine 09:57:00 [facility] Moderna COVID-19 Moderna COVID-19 2020-08-21 Completed [facility] Vaccine Vaccine 09:57:00 [facility] Moderna COVID-19 Moderna COVID-19 2020-08-21 Completed [facility] Vaccine Vaccine 09:57:00 [facility] Moderna COVID-19 Moderna COVID-19 2020-08-21 Completed [facility] Vaccine Vaccine 09:57:00 [facility] Moderna COVID-19 Moderna COVID-19 2020-08-21 Completed [facility] Vaccine Vaccine 09:57:00 [facility] Influenza High Dose 2017-05-28 Completed [facility] 00:00:00 [facility] Influenza High Dose 2017-05-28 Completed [facility] 00:00:00 [facility] Vital Signs Vital Name Observation Time Observation Value Comments Source height 2022-03-25 14:20:00 60 [in_i] [facility] weight 2022-03-25 14:20:00 155.3 [lb_av] [facility] temperature 2022-03-25 14:20:00 97.3 [degF] [facility] bmi 2022-03-25 14:20:00 30.33 kg/m2 [facility] oximetry 2022-03-25 14:20:00 99 % [facility] respiratory rate 2022-03-25 14:20:00 18 /min Comm on [facility] blood pressure 2022-03-25 14:20:00 132 mm[Hg] [facility] - systolic [facility] blood pressure 2022-03-25 14:20:00 67 mm[Hg] [facility] - diastolic [facility] Systolic blood 2022-03-17 22:02:00 169 mm[Hg] [facility] Diastolic blood 2022-03-17 22:02:00 96 mm[Hg] Unive rsity of pressure [facility] Heart rate 2022-03-17 22:02:00 79 /min [facility] Body temperature 2022-03-17 22:02:00 36.72 [facility] 2022-03-17 22:02:00 18 /min [facility] height 2022-03-17 22:02:00 149.9 cm [facility] Body weight 2022-03-17 22:02:00 71.215 kg [facility] BMI 2022-03-17 22:02:00 31.71 kg/m2 [facility] Oxygen saturation in 2022-03-17 22:02:00 96 /min [facility]ial blood by [place] [employer] Pulse oximetry [place] height 2022-03-17 15:40:00 60 [in_i] [facility] weight 2022-03-17 15:40:00 157.5 [lb_av] [facility] temperature 2022-03-17 15:40:00 97.9 [degF] [facility] bmi 2022-03-17 15:40:00 30.76 kg/m2 [facility] oximetry 2022-03-17 15:40:00 98 % [facility] respiratory rate 2022-03-17 15:40:00 17 /min Comm on [facility] blood pressure 2022-03-17 15:40:00 139 mm[Hg] [facility] - systolic [facility] blood pressure 2022-03-17 15:40:00 77 mm[Hg] [facility] - diastolic [facility] Systolic blood 2022-02-20 05:00:00 176 mm[Hg] [facility] Diastolic blood 2022-02-20 05:00:00 86 mm[Hg] [facility] Heart rate 2022-02-20 05:00:00 75 /min [facility] Respiratory rate 2022-02-20 05:00:00 21 /min [facility] in 2022-02-20 05:00:00 98 /min [facility] blood by [place] [employer] Pulse oximetry [place] Body temperature 2022-02-20 01:52:00 37 [facility] height 2022-02-20 01:52:00 149.9 cm [facility] Body weight 2022-02-20 01:52:00 72.077 kg [facility] BMI 2022-02-20 01:52:00 32.09 kg/m2 [facility] height 2022-02-18 14:30:00 60 [in_i] [facility] weight 2022-02-18 14:30:00 159 [lb_av] [facility] bmi 2022-02-18 14:30:00 31.05 kg/m2 [facility] blood pressure 2022-02-18 14:30:00 136 mm[Hg] [facility] - systolic [facility] blood pressure 2022-02-18 14:30:00 86 mm[Hg] [facility] - diastolic [facility] height 2021-12-23 15:20:00 60 [in_i] [facility] weight 2021-12-23 15:20:00 160.1 [lb_av] [facility] temperature 2021-12-23 15:20:00 97.7 [degF] [facility] bmi 2021-12-23 15:20:00 31.26 kg/m2 [facility] oximetry 2021-12-23 15:20:00 99 % [facility] respiratory rate 2021-12-23 15:20:00 18 /min [facility] blood pressure 2021-12-23 15:20:00 138 mm[Hg] [facility] - systolic [facility] blood pressure 2021-12-23 15:20:00 76 mm[Hg] [facility] - diastolic [facility] height 2021-09-08 14:40:00 60 [in_i] [facility] weight 2021-09-08 14:40:00 164.9 [lb_av] [facility] temperature 2021-09-08 14:40:00 96.8 [degF] [facility] bmi 2021-09-08 14:40:00 32.2 kg/m2 [facility] oximetry 2021-09-08 14:40:00 99 % [facility] respiratory rate 2021-09-08 14:40:00 17 /min Comm on [facility] blood pressure 2021-09-08 14:40:00 132 mm[Hg] [facility] - systolic [facility] blood pressure 2021-09-08 14:40:00 70 mm[Hg] [facility] - diastolic [facility] height 2021-09-08 14:30:00 60 [in_i] [facility] weight 2021-09-08 14:30:00 164.9 [lb_av] [facility] temperature 2021-09-08 14:30:00 96.8 [degF] [facility] 2021-09-08 14:30:00 32.2 kg/m2 [facility] 2021-09-08 14:30:00 99 % [facility] respiratory rate 2021-09-08 14:30:00 17 /min Comm on [facility] blood pressure 2021-09-08 14:30:00 132 mm[Hg] [facility] - systolic [facility] blood pressure 2021-09-08 14:30:00 70 mm[Hg] [facility] - diastolic [facility] height 2021-07-08 14:20:00 60 [in_i] [facility] 2021-07-08 14:20:00 164.2 [lb_av] [facility] bmi 2021-07-08 14:20:00 32.06 kg/m2 [facility] height 2021-06-27 11:00:00 60 [in_i] [facility] weight 2021-06-27 11:00:00 164.2 [lb_av] Common [facility] bmi 2021-06-27 11:00:00 32.06 kg/m2 [facility] Procedures Procedure Date / Time Performed Performing Clinician [facility] e CONSENT/REFUSAL FOR 2022-03-17 21:51:37 [facility] TREAT[facility] CT ABDOMEN PELVIS W 2022-02-20 03:54:40 Kevin Sellers [facility] CONTRAST [facility] Branch LIPASE 2022-02-20 02:21:00 Kevin Sellers [facility] COMP. METABOLIC PANEL 2022-02-20 02:21:00 Kevin Sellers [facility] ([id number]) [facility] CBC WITH DIFF 2022-02-20 02:21:00 Kevin Sellers [facility] URINALYSIS 2022-02-20 02:21:00 Kevin Sellers [facility] CONSENT/REFUSAL FOR 2022-02-20 01:25:24 [facility] TREATMENT Plan of Care Planned Activity Planned Date Details Comments Source Future Scheduled 2022-04-26 HEPATITIS B VACCINES [facility] Test 19:48:57 (1 of 3 - 3-dose series) [code = HEPATITIS B VACCINES (1 of 3 - 3-dose series)] Future Scheduled 2022-04-26 COVID-19 VACCINE (#1) [facility] Test 19:48:57 [code = COVID-19 VACCINE (#1)] Future Scheduled 2022-04-26 Hepatitis C screening [facility] Test 19:48:57 (procedure) [code = [id number]] Future Scheduled 2022-04-26 SHINGLES VACCINES (1 [facility] Test 19:48:57 of 2) [code = SHINGLES VACCINES (1 of 2)] Future Scheduled 2022-04-26 65+ PNEUMOCOCCAL [facility] Test 19:48:57 VACCINE (1 - PCV) [code = 65+ PNEUMOCOCCAL VACCINE (1 - PCV)] Future Scheduled 2022-04-26 INFLUENZA VACCINE [facility] Test 19:48:57 [code = INFLUENZA VACCINE] Encounters Start End Encounter Admission Attending Care Care Encounter Source Date/Time Date/Time Type Type Clinicians Facility Department ID 2022-02-24 Outpatient [facility], [facility] [id number] [facility] 08:13:00 Ingrid [facility] 2022-02-04 Outpatient Berman, [facility]C [facility] [id number] Common 12:00:01 Ingrid [facility] 2022-02-03 Outpatient [facility], [facility] 09:39:00 [facility] [facility] 2021-12-18 Outpatient Berman, STLMLC STLC Common 11:46:00 Ingrid [facility] 2021-09-04 Outpatient Berman, STLMLC STLC Common 14:47:00 Ingrid [facility] 2021-08-18 Outpatient Berman, STLMLC STLC Common 14:16:01 Ingrid [facility] 2021-07-16 Outpatient Berman, STLMLC STLC Common 14:32:24 Ingrid [facility] 2021-07-16 Outpatient Berman, STLMLC STLC Common 14:01:16 Ingrid 11431 [facility] 2021-07-16 Outpatient Berman, STLMLC STLC Common 13:43:22 Ingrid [facility] 2021-07-16 Outpatient Berman, STLMLC STLC Common 13:42:05 Ingrid 70594 [facility] 2021-07-16 Outpatient Berman, STLMLC STLC Common 13:08:44 Ingrid [facility] 2021-07-16 Outpatient Berman, STLMLC STLC Common 12:59:31 Ingrid 21855 [facility] 2021-07-16 Outpatient Berman, STLMLC STLMLC Common 12:54:24 Ingrid 59308 [facility] 2021-07-16 Outpatient Berman, STLMLC STLMLC Common 12:40:20 Ingrid 91699 [facility] 2021-07-16 Outpatient Berman, STLMLC STLMLC Common 12:39:34 Ingrid 51804 [facility] 2021-07-16 Outpatient Berman, STLMLC STLMLC Common 12:37:29 Ingrid 31314 [facility] 2021-07-16 Outpatient Berman, STLMLC STLMLC Common 12:19:29 Ingrid 25499 [facility] 2021-07-16 Outpatient Berman, STLMLC STLMLC Common 12:18:16 Ingrid 77760 [facility] 2021-07-16 Outpatient Berman, STLMLC STLMLC Common 11:54:24 Ingrid 09762 [facility] 2021-07-16 Outpatient Berman, STLMLC STLMLC Common 11:44:30 Ingrid 41511 [facility] 2021-07-16 Outpatient Berman, STLMLC STLMLC Common 11:17:21 Ingrid 12168 [facility] 2021-07-16 Outpatient Berman, STLMLC STLMLC Common 11:11:39 Ingrid 72821 [facility] 2021-07-16 Outpatient Berman, STLMLC STLMLC Common 10:59:28 Ingrid 79642 [facility] 2021-07-16 Outpatient Bemran, STLMLC STLMLC Common 10:57:24 Ingrid 46069 [facility] 2021-04-[address] [facility] [id number] Univers 15:14:08 ity [facility] 2022-03-30 2022-03-30 (TEL) STLMLC STLMLC [id number] Co mmon 00:00:00 00:00:00 [facility] 2022-03-25 2022-03-25 OFFICE STLMLC STLMLC [id number] Co mmon 00:00:00 00:00:00 VISIT Spirit ESTAB PT - CHI LEVEL 4 [facility] 2022-03-17 2022-03-17 Emergency X [employer] ERT [id number] Univers 17:03:00 18:23:00 OTILIO ity [facility] 2022-03-17 2022-03-17 Emergency [facility] [id number] Univers 17:03:00 18:23:00 Otilio ANGLETAMMIE [id number] i ty [facility] [id number] [facility] [id number] [address] 2022-03-17 2022-03-17 OFFICE STLC STLC [id number] Co mmon 00:00:00 00:00:00 VISIT EST Spir it PT LEVEL 3 - [facility] 2022-03-16 2022-03-16 (TEL) STLMLC STLMLC [id number] Co mmon 00:00:00 00:00:00 [facility] 2022-03-13 2022-03-13 (TEL) STLMLC STLMLC [id number] Co mmon 00:00:00 00:00:00 [facility] 2022-02-19 2022-02-20 Emergency X [facility] ERT [id number] Univers 20:55:00 01:30:00 KEVIN ity [facility] 2022-02-19 2022-02-20 Emergency [facility] [id number] Univers 20:55:00 01:30:00 Kevin KAPLAN [id number] ity [facility] [id number] [facility] [id number] [address] 2022-02-18 2022-02-18 OFFICE STLMLC STLMLC [id number] Co mmon 00:00:00 00:00:00 VISIT NEW Spir it PT LEVEL 3 - CHI [facility] 2022-02-13 2022-02-13 (TEL) STLMLC STLMLC [id number] Co mmon 00:00:00 00:00:00 Spirit [facility] 2022-02-02 2022-02-02 (TEL) STLMLC STLMLC [id number] Co mmon 00:00:00 00:00:00 Spirit [facility] 2022-01-28 2022-01-28 (TEL) STLMLC STLMLC [id number] Co mmon 00:00:00 00:00:00 [facility] 2022-01-02 2022-01-02 Outpatient DMG DMG [id number] [facility] 07:32:00 07:32:00 [facility] 2021-12-25 2021-12-25 Outpatient EL Sharayala, HCAPM DAYS [id number] [id number] [facility] 06:28:00 06:28:00 Rosemary 19 [facility] 2021-12-25 2021-12-25 Outpatient EL [facility] LA655 [facility] 06:28:00 06:28:00 Rosemary [id number] [facility] 2021-12-23 2021-12-23 OFFICE STLMLC STLMLC [id number] Co mmon 00:00:00 00:00:00 VISIT Spirit ESTAB PT - CHI LEVEL 4 [facility] 2021-09-08 2021-09-08 SUB ANNUAL STLMLC STLMLC [id number] Common 00:00:00 00:00:00 MCR Spirit WELLNESS - CHI VISIT [facility] 2021-09-08 2021-09-08 OFFICE STLMLC STLMLC [id number] Co mmon 00:00:00 00:00:00 VISIT Spirit ESTAB PT - CHI LEVEL 4 [facility] 2021-07-08 2021-07-08 OL DIG E/M STLMLC STLMLC [id number] Common 00:00:00 00:00:00 SVC 11-20 Spir it MIN [facility] 2021-07-07 2021-07-07 (TEL) STLMLC STLMLC [id number] Co mmon 00:00:00 00:00:00 [facility] 2021-06-27 2021-06-27 (TEL) STLMLC STLMLC [id number] Co mmon 00:00:00 00:00:00 [facility] 2021-06-27 2021-06-27 OL DIG E/M STLMLC STLMLC [id number] Common 00:00:00 00:00:00 [facility] 05-10 Spir it MIN [facility] 2021-06-25 2021-06-25 (TEL) STLMLC STLMLC [id number] Co mmon 00:00:00 00:00:00 [facility] 2021-05-08 2021-05-08 (TEL) STLMLC STLMLC [id number] Co mmon 00:00:00 00:00:00 [facility] 2021-05-05 2021-05-05 Outpatient DMG DMG [id number] [facility] 12:00:00 12:00:00 1115 [facility] 2021-02-13 2021-02-13 Outpatient STLMLC STLMLC [id number] Common 00:00:00 00:00:00 [facility] 2021-01-30 2021-01-30 Outpatient STLMLC STLMLC [id number] Common 00:00:00 00:00:00 [facility] 2021-01-29 2021-01-29 Outpatient STLMLC STLMLC [id number] Common 00:00:00 00:00:00 [facility] 2021-01-28 2021-01-28 Outpatient STLMLC STLMLC [id number] Common 00:00:00 00:00:00 [facility] 2021-01-28 2021-01-28 Outpatient STLMLC STLMLC [id number] Common 00:00:00 00:00:00 [facility] 2020-10-282020-10-28 Outpatient STLMLC STLMLC [id number] Common 00:00:00 00:00:00 [facility] 2020-10-23 2020-10-23 Outpatient STLMLC STLMLC [id number] Common 00:00:00 00:00:00 [facility] 2020-10-08 2020-10-08 Outpatient STLMLC STLMLC [id number] Common 00:00:00 00:00:00 [facility] 2020-09-02 2020-09-02 Outpatient STLMLC STLMLC [id number] Common 00:00:00 00:00:00 [facility] 2020-08-21 2020-08-21 Outpatient AMANDEEP [facility] [id number] [address] [place] 00:00:00 00:00:00 ALEYDA [address] 2020-08-21 2020-08-21 Outpatient AMANDEEP [facility] [id number] [address] [place] 00:00:00 00:00:00 ALEYDA [address] 2020-07-20 2020-07-20 Laboratory Lab, [facility] [id number] 15:48:31 16:08:31 Only Fam Pob I [facility] [id number] [place] 4.2.7.2.686 Profasa [id number] nal [address] 2020-07-20 2020-07-20 Outpatient R MARKUS, [facility] [id number] Univers 15:40:00 15:40:00 PIPO pringle [facility] 2020-07-20 2020-07-20 Letter Doctor OLY [id number] 00:00:00 00:00:00 (Out) Unassigned, SATURNINO [id number] Keller [facility] 4.2.7.2.686 [id number] 044 2020-06-20 2020-06-20 Outpatient STLMLC STLMLC [id number] Common 00:00:00 00:00:00 [facility] 2020-06-17 2020-06-17 Outpatient STLMLC STLMLC [id number] Common 00:00:00 00:00:00 [facility] 2020-06-06 2020-06-06 Outpatient STLMLC STLMLC [id number] Common 00:00:00 00:00:00 [facility] 2020-06-03 2020-06-03 Outpatient STLMLC STLMLC [id number] Common 00:00:00 00:00:00 [facility] 2020-04-02 2020-04-02 Outpatient STLMLC STLMLC [id number] Common 00:00:00 00:00:00 [facility] 2020-03-19 2020-03-19 Outpatient STLMLC STLMLC [id number] Common 00:00:00 00:00:00 [facility] 2020-03-06 2020-03-06 [facility] [id number] Common 14:30:00 14:30:00 t [email or web address] [facility] it [address] [facility] 2020-02-29 2020-02-29 Letter Lab, Pcp [facility] [id number] 00:00:00 00:00:00 (Out) [facility] [id number] [place] 4.2.7.2.686 Professio [id number] nal [address] 2020-01-20 2020-01-20 Laboratory Lab, [facility] [id number] 13:45:30 14:05:30 Only Fam Pob I Health [id number] [place] 4.2.7.2.686 Professio [id number] nal 0[address] 2020-01-20 2020-01-20 Outpatient Galdino SMITH, [facility] [id number] Univers 13:40:00 13:40:00 REBECCA stacy of [facility] 2019-12-05 2019-12-05 Out[facility] [id number] Common 14:45:00 14:45:[address] [email or web address] [address] [facility] 2019-11-20 2019-11-20 Outpatient [facility] [id number] Common 09:10:00 09:10:00 t [email or web address] [facility] it Drive Family [facility] 2019-08-31 2019-08-31 Out[facility] [id number] Common 15:30:00 15:30:00 [address] [place] [address] [facility] 2019-08-31 2019-08-31 Outpatient [facility] [id number] Common 15:15:00 15:15:[address] [place] [address] [facility] 2019-06-29 2019-06-29 Outpatient [facility] [id number] Common 15:45:00 15:45:[address] [place] [address] [facility] 2019-04-25 2019-04-25 Outpatient [facility] [id number] Common 14:45:00 14:45:00 [address] [place] [address] [facility] 2019-04-18 2019-04-18 Outpatient [facility] [id number] Common 11:21:00 11:21:00 [address] [place] [address] [facility] 2019-04-11 2019-04-11 Outpatient [facility] [id number] Common 09:02:00 09:02:00 [address] [place] [address] [facility] 2019-01-24 2019-01-24 Outpatient [facility] [id number] Common 14:45:00 14:45:00 [address] [place] [address] [facility] 2018-10-25 2018-10-25 Outpatient [facility] [id number] Common 15:15:00 15:15:00 [address] [place] [address] [facility] 2018-09-19 2018-09-19 Outpatient [facility] [id number] Common 09:16:00 09:16:00 [address] [place] [address] [facility] 2018-08-09 2018-08-09 Outpatient [facility] [id number] Common 15:15:00 15:15:00 [address] [place] [address] [facility] 2018-07-28 2018-07-28 Outpatient [facility] [id number] Common 15:00:00 15:00:00 [address] [place] [address] [facility] 2018-07-22 2018-07-22 Outpatient Adilson [facility] [id number] Common 15:18:00 15:18:00 [facility] 2018-07-13 2018-07-13 Outpatient [facility] [id number] Common 16:50:00 16:50:00 [address] [place] [address] [facility] 2018-02-09 2018-02-09 Outpatient Ad[place]son [facility] [id number] Common 15:15:00 15:15:00 [address] [place] [address] [facility] Results Test Description Test Time Test Comments Results Result Comments Source SURGICAL 2021-12-30 17:00:00 Test Item Value Reference Range Interpretation Commkasi pringle SURGICAL RUN (test DATE: 12/30/21 [facility] You Felix [facility] - LAB PAGE 1 RUN TIME: 1700 Specimen Inquiry RUN USER: code = INTERFACE SR) [place] NT: BRAIN MAYFIELD ACCT #: [id number] LOC: [facility] U #: [id number] AGE/SX: 76/F ROOM: RE12/25/21CHASITY DR: Beto Robles : 43 BED: DIS: STATUS: [facility] TLOC: SPEC #: 22:[facility]:SR379 RECD: STATUS: CITLALI BLAIR #: [id number] DELIA: 12/25/[address]: Rosemary Robles MD ENTERED: 12/25/21 SP TYPE: SURGICAL OTHR DR: Ivan Berman MD ORDERED: [id number], ANATOMIC SPE C, SPECIMEN TRACK COPIES TO: Rosemary Robles MD [address] [place] [address] [id number] Ivan Bemran MD [address] [place] [address] [id number] PROCEDURES: 25370 (12/29/21) SPECIMEN TRACK (12/25/21) TISSUES: A. 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 However, recommendfurther evaluation of adjacent vaginal wall to excluded vaginal dysplasia. CONTINUED ON NEXT PAGE RUN DATE: 12/30/21 [facility] RUN TIME: 1700 Specimen Inquiry RUN USER: INTERFACE SPEC #: 22:[facility]:SR379 PATIENT: BRAIN MAYFIELD #[id number] (Continued) ------ GROSS DESCRIPTION Platinum jarocho with bilateral fallopian tubes and ovaries.Received is a uterus weighing 34.4 g andmeasures cornu to cornu 4.5 posterior to anterior 3 cm and from fundus to cervix 5.5 cm. The cervix is covered by focal hemorrhagic surface and measures 3.2 x 3 cm with a cervicalos grants transverse diameter of 0.6 cm. It is bivalved to reveal a cervical canalmeasuring 2.2 cm in [facility]. The endometrial cavity measures 2 x 1.5 cm and covered byendometrium of 0.2 cm in t [facility]. The uterine wall has a maximum thickness of 1.5 cm. Sectioning through the uteri ne wall reveals no obvious lesions. The serosal surface issmooth and glistening. The attached rig ht ovary measures 1.8 x 1.3 x 0.6 cm. Cut section reveal grosslyunremarkable ovarian parenchyma. The right fallopian tube with fimbriated end has asterilization clamp present and measures 3.5 cm in length and has a diameter of 0.5 cm. The attached left ovary measures 2 x 1.5 x 0.7 cm. Cut sections reveal grosslyunremarkable ovarian parenchyma. The left fallopi an tube with fimbriated end has asterilization clamp present and measures 3.5 cm in length an d has a diameter of 0.5 cm. A1-A2 cervix 12-3 o'clockA3-A4 cervix 3-6 o'clockA5-A7 cervix 6-9 o'cl ockA8-A10 cervix 9-12 o'gfnnkV58 posterior kvvtzbumsasxmsA09 anterior endomyometrium A13 right ova ryA14 right fallopian tube cut surface with entire bisected fimbriated endA15 left ovary A16 left fallopian tube cut surface with entire bisected fimbriated end Technical component perf ormed at [employer] , [place] [address] Unless gross only, the diagnosis is based upon microscopic examination.Immunohistochemistry: This test was developed and its performanc echaracteristics determined by this laboratory. It has not been approved nordoes it need cyndi roval by the [place] FDA. Appropriate positive and negative controlsare reviewed and judged to be ac ceptable. This laboratory is certified underthe Clinical Laboratory Improvement Amendments (CLIA -88) as qualified toperform high complexity clinical laboratory testing. MICROSCOPIC DESCRIP TION Findings are incorporated into the diagnosis section. CONTINUED ON NEXT PAGE RUN DATE: 12/30/21 DIANE CRAMER PAGE 3 RUN TIME: 1700 Specimen Inquiry RUN USER: INTERFACE SPEC #: 22:[facility]:[id number] PATIENT: BRAIN MAYFIELD #[id number] (Continued) ------ Signed SIGNATURE ON FILE Robin Jimenez 12/30/21 1700 END OF REPORT BASIC METABOLIC [id number] 17:43:00 Test Item Value Reference Range Interpretation Comments SODIUM (test code = NA) 141 mmol/L 134-147 N POTASSIUM (test code = 4.2 mmol/L 3.4-5.0 N K) CHLORIDE (test code = 109 mmol/L 100-108 H CL) CARBON DIOXIDE (test 25 mmol/L 21-32 N code = CO2) ANION GAP (test code = 7.0 GAP calc 4.0-15.0 N GAP) GLUCOSE (test code = 89 MG/DL 70-110 N GLU) BLOOD UREA NITROGEN 17 MG/DL 7-18 N (test code = BUN) GLOMERULAR FILTRATION >=60 max estimate >60 RATE (test code = GFR) estGFR CREATININE (test code = 0.7 MG/DL 0.6-1.0 N CREAT) CALCIUM (test code = CA) 10.6 MG/DL 8.5-10.1 H COVID 19 INHOUSE [id number] 17:39:00 Test Item Value Reference Range Interpretation Comments COVID 19 INHOUSE AG NEGATIVE Negative Per manu facturer, (test code = negative result s should [id number]) be treated aspr esumptive and, if inconsi stent with clinical signs andsymptoms or necessary for patient man agement, should betested with an alternative mol ecular assay. Negative resultsdo not preclude SA RS-CoV-2 infection and s hould not be usedas the s ole basis for patient man agement decisions. Nega tive results should be considered in t he context of apatient's r ecent exposures, hist ory, presence of cli nicalsigns and symptoms co nsistent with COVID-19. URINALYSIS [id number] 17:26:00 Test Item Value Reference Range Interpretation Comments UA GLUCOSE DIPSTICK (test NEGATIVE mg/dL NEG code = DGLUU) UA BILIRUBIN DIPSTICK (test NEGATIVE mg/dL NEG code = BILU) UA KETONE DIPSTICK (test NEGATIVE mg/dL NEG code = KETU) UA SPECIFIC GRAVITY (test 1.030 SG 1.005-1.030 code = SGU) UA BLOOD DIPSTICK (test TRACE mg/DL NEG code = TOBY) UA PH DIPSTICK (test code = 5.5 pH UNITS 5.0-7.0 MARVEL) UA PROTEIN DIPSTICK (test NEGATIVE mg/dL NEG code = PROU) UA UROBILINIOGEN DIPSTICK 0.2 mg/dL <2.0 (test code = URO) UA NITRITE DIPSTICK (test NEGATIVE SCREEN NEG code = PALLAVI) UA LEUKOCYTE ESTERASE NEGATIVE Leuk/mcL NEGATIVE DIPSTICK (test code = LEUU) Urine Specimen Type: Clean CatchCBC W/AUTO [id number] 17:18:00 Test Item Value Reference Range Interpretation Comments WHITE BLOOD CELL (test code = 9.8 K/mm3 3.5-11.0 N WBC) RED BLOOD CELL (test code = 4.96 M/mm3 4.70-6.10 N RBC) HEMOGLOBIN (test code = HGB) 14.1 G/DL 10.4-14.9 N HEMATOCRIT (test code = HCT) 42.6 % 31.5-44.1 N MEAN CELL VOLUME (test code = 85.9 Fl 84.5-98.6 N MCV) MEAN CELL HGB (test code = MCH) 28.4 pg 27.0-34.2 N MEAN CELL HGB CONCETRATION 33.1 G/DL 31.5-34.0 N (test code = MCHC) RED CELL DISTRIBUTION WIDTH 12.0 SD 11.5-14.5 N (test code = RDW) PLATELET COUNT (test code = 299 K/mm3 150-450 N PLT) MEAN PLATELET VOLUME (test code 10.00 fL 7.0-10.5 N = MPV) NEUTROPHIL % (test code = NT%) 46.6 % 40-76 N IMMATURE GRANULOCYTE % (test 0.1 % 0.0-5.0 N code = IG%) LYMPHOCYTE % (test code = LY%) 46.4 % 20.5-51.1 N MONOCYTE % (test code = MO%) 5.4 % 1.7-9.3 N EOSINOPHIL % (test code = EO%) 0.9 % 0.0-6.0 N BASOPHIL % (test code = BA%) 0.6 % 0.0-2.0 N NUCLEATED RBC % (test code = 0.0 /100WBC% 0.0-1.0 N NRBC%) NEUTROPHIL # (test code = NT#) 4.6 K/mm3 1.8-7.6 N IMMATURE GRANULOCYTE # (test 0.01 x10 3/uL 0.00-0.03 N code = IG#) LYMPHOCYTE # (test code = LY#) 4.6 K/mm3 0.6-3.2 H MONOCYTE # (test code = MO#) 0.5 K/mm3 0.3-1.1 N EOSINOPHIL # (test code = EO#) 0.1 K/mm3 0.0-0.4 N BASOPHIL # (test code = BA#) 0.1 K/mm3 0.0-0.1 N NUCLEATED RBC # (test code = 0.0 K/mm3 0.0-0.1 N NRBC#) MANUAL DIFF REQUIRED (test code NO DIFF/SCN CRITERIA = MDIFF) - XR CHEST 1 [id number] 17:05:00 [facility] 1945 Sex: F Name: BRAIN MAYFIELD [place] : 1945 Age/S: 76 / F [id number] [place] Unit #: [id number] Loc: [place] [address] Phys: Ezio Avendano MD Acct: [id number] Dis Date: Status: PRE VAC PHONE #: [phone] Exam Date: 12/24/2021 1700 FAX #: Reason: PRE OP EXAMS: CPT: [id number] XR CHEST 1 V 93211 Fluoro Time: DAP (Gy m2): Air Kerma (mGy): EXAM: - XR CHEST 1 V CLINICAL HISTORY: PRE OP TECHNIQUE: Single frontal view. COMPARISON: None available. LOCATION: H65 FINDINGS: The trachea appears normal. The mediastinum and cardiac silhouette are within normal limits for size. The lungs are clear. No pleural effusions. Limited evaluation of soft tissues and osseous structures is grossly unremarkable. IMPRESSION: No acute cardiopulmonary process. at 1705 Reported and signed by: Jose Sy D.O. CC: Rosemary Robles MD; Ivan Berman MD; Ezio Avendano MD PAGE 1 Signed Report Name: BRAIN MAYFIELD [place] : 1945 Age/S: 76 / F [id number] [address] Unit #: [id number] Loc: [place] [address] Phys: Ezio Avendano MD Acct:[id number] Dis Date: Status: PRE SDC PHONE #: [phone] Exam Date: 12/24/2021 170 FAX #: Reason: PRE OP EXAMS: CPT: [id number] XR CHEST 1 V 24477 Fluoro Time: DAP (Gy m2): Air Kerma (mGy): (Elmer nued) Technologist: Justin Gatica, RT(R) Trnscb Date/Time: 12/24/2021 (170) [id number] Orig Print D/T: S: 12/24/2021 (1392) PAGE 2 Signed Report SARS-COV-2(COVID19),[id number] 00:00:00 Test Item Value Reference Range Interpretation Comments SARS-CoV-2 INTERPRETATION (test POSITIVE SEE NOTE code = 16819-7) SOURCE (test code = 92005-7) NOT SPECIFIED
[2022-05-29 17:13] LABS: Absolute Lymphocytes (CBC) 3.5 K/uL (0.7-4.9); Hematocrit 38.3 % (36.0-45.0); Lymphocytes % 25.2 % (15.3-44.8); MCV 85.9 fL (80-100); MPV 7.7 fL (7.6-11.3); RBC Red Blood Cell Count 4.46 M/uL (3.86-4.86)
[2022-05-29 17:14] LABS: Protime INR 1.01
--- NOTE | 2022-05-29 17:27 | RAD REPORT ---
EXAM DESCRIPTION: RAD - Chest Single View - 05/29/2022 5:13 pm CLINICAL HISTORY: CHEST PAIN COMPARISON: Portable 10/10/2020 TECHNIQUE: AP portable chest image was obtained 05/29/2022 5:13 pm . FINDINGS: Lung volumes are low which accentuates lung parenchymal pattern. Under penetrated portable technique and body habitus contributes to bibasilar lung base overall opacification. Lung base atele ctasis is evident. Minimal infiltrates could be obscured. Failure or volume overload are not suspecte d. Heart and vasculature are normal. No measurable pleural effusion and no pneumothorax. No acute bony abnormality seen. No acute aortic findings suspected. IMPRESSION: Limited portable study without acute cardiopulmonary process. Minimal lung base infiltrates could be masked by the atelectasis.
[2022-05-29 17:32] LABS: Magnesium 2.3 mg/dL (1.6-2.4); Troponin High Sensitivity 6.4 pg/mL (<58.9)
[2022-05-29 17:45] LABS: SARS-COV-2 RT PCR NEGATIVE (NEGATIVE)
--- NOTE | 2022-05-29 20:29 | RAD REPORT ---
EXAM DESCRIPTION: CT - Chest For Pe Angio - 05/29/2022 7:36 pm CLINICAL HISTORY: chest pain, shortness of breath COMPARISON: No comparisons TECHNIQUE: Dynamically enhanced 3 mm thick images of the chest were obtained during administration o f approximately 150mL Isovue 370 IV contrast. Coronal and oblique MIP reconstruction images were gene rated and reviewed. Exam utilizes a protocol to evaluate the pulmonary arterial tree. All CT scans are performed using dose optimization technique as appropriate and may include automated exposure control or mA/KV adjustment according to patient size. FINDINGS: No pulmonary emboli are identified. The aorta as imaged shows no acute or suspicious finding. No pericardial thickening or effusion. No infiltrate or mass in the lung parenchyma. No pleural effusion or pleural thickening. No mediastinal or hilar suspicious masses. No chest wall masses or abnormal axillary lymphadenopathy. IMPRESSION: No pulmonary emboli identified. No other significant or suspicious findings.
--- NOTE | 2022-05-29 21:13 | ER ---
Nurse's Notes [facility] Name: Regi Cooney Age: 77 yrs Sex: Female : 1945 Arrival Date: 05/29/2022 Time: 15:34 Bed DIS3 Private MD: Diagnosis: Cough Presentation: 05/29 16:20 Chief complaint: Patient states: "I had the flu 3 weeks ago and I haven't been the same ss since. I have chest pain and it goes to my back.". Coronavirus screen: Client denies travel out of the [place] in the last 14 days. Ebola Screen: Patient denies exposure to infectious person. Patient denies travel to an Ebola-affected area in the 21 days before illness onset. Initial Sepsis Screen: Does the patient meet any 2 criteria? No. Patient's initial sepsis screen is negative. Does the patient have a suspected source of infection? No. Patient's initial sepsis screen is negative. Risk Assessment: Do you want to hurt yourself or someone else? Patient reports no desire to harm self or others. Onset of symptoms was June 07, 2022. 16:20 Method Of Arrival: Ambulatory ss 16:20 Acuity: COLT 3 ss Triage Assessment: 21:55 General: Appears in no apparent distress. Behavior is calm, cooperative. Pain: vc1 Complains of pain in chest. Cardiovascular: Reports chest pain. Historical: - Allergies: 16:20 No Known Allergies; ss - PMHx: 16:20 Arthritis; Hypertension; ss - Immunization history:: Client reports receiving the 2nd dose of the Covid vaccine. - Social history:: Smoking status: Patient denies any tobacco usage or history of. Screenin:55 Abuse screen: Denies threats or abuse. Nutritional screening: No deficits noted. vc1 Tuberculosis screening: No symptoms or risk factors identified. Fall Risk None identified. Assessment: 21:57 Reassessment: Patient and/or family updated on plan of care and expected duration. Pain vc1 level reassessed. Patient states feeling better. Patient states symptoms have improved. Vital Signs: 16:19 Pulse 83; Resp 18; Temp 98.4(O); Pulse Ox 100% on R/A; ss 16:21 BP 116 / 70; ss ED Course: 15:34 Patient arrived in ED. as 16:07 Ry Petty PA is PHCP. cp 16:07 Peter Spence MD is Attending Physician. cp 16:20 Triage completed. ss 16:20 Arm band placed on right wrist. ss 16:42 EKG done, by ED staff, reviewed by Ry COWAN. zm 17:04 COVID-19/FLU A+B Sent. iw 17:05 Inserted saline lock: 22 gauge in left antecubital area, using aseptic technique. Blood iw collected. 17:15 XRAY Chest (1 view) In Process Unspecified. EDMS 19:00 Patient has correct armband on for positive identification. vc1 19:38 CT Chest For PE Angio In Process Unspecified. EDMS 21:55 No provider procedures requiring assistance completed. Patient maintains SpO2 vc1 saturation greater than 95% on room air. 22:06 IV discontinued, intact, bleeding controlled, No redness/swelling at site. Pressure vc1 dressing applied. Administered Medications: 21:54 Not Given (Other Intervention Used): Rocephin (cefTRIAXone) 1 grams IM once ld1 21:54 Drug: Rocephin (cefTRIAXone) 1 grams Route: IV; Rate: bolus; Site: left antecubital; ld1 21:55 Drug: Tussionex Pennkinetic ER (chlorpheniramine-hydrocodone) Suspension 2.5 ml Route: ld1 PO; 21:55 Drug: Ibuprofen 600 mg Route: PO; ld1 Medication: 21:56 VIS not applicable for this client. vc1 Outcome: 21:12 Discharge ordered by MD. cp 21:56 Discharged to home ambulatory, with friend. vc1 21:56 Condition: good 21:56 Discharge instructions given to patient, Instructed on discharge instructions, follow up and referral plans. medication usage, Demonstrated understanding of instructions, follow-up care, medications, Prescriptions given X 3. 22:07 Patient left the ED. vc1 Signatures: Dispatcher [employer] YAZMINGA Vesna Mcdermott Irene, RN RN iw Smirch, Shelby, RN RN ss Page, Corey, PA PA cp Renetta Reno RN RN ld1 Viviana Gupta RN RN vc1 Pat Mcdermott
--- NOTE | 2022-05-29 21:13 | EDPHYS ---
Physician Documentation [facility] Name: Regi Cooney Age: 77 yrs Sex: Female : 1945 Arrival Date: 05/29/2022 Time: 15:34 Bed DIS3 Private MD: ED Physician Peter Spence HPI: 05/29 16:23 This 77 yrs old Female presents to ER via Ambulatory with complaints of Chest cp Pain, Back Pain, Shortness Of Breath. 16:23 The patient or guardian reports chest pain that is located primarily in the anterior cp chest wall. 16:23 Onset: 3 week(s) ago. cp 16:23 The pain radiates to back. Associated signs and symptoms: Pertinent positives: cough, cp shortness of breath, Pertinent negatives: diaphoresis, lower extremity pain, lower extremity swelling. The chest pain is described as aching. Patient reports cough for past 3 weeks due to influenza. Denies recent fever. Historical: - Allergies: 16:20 No Known Allergies; ss - PMHx: 16:20 Arthritis; Hypertension; ss - Immunization history:: Client reports receiving the 2nd dose of the Covid vaccine. - Social history:: Smoking status: Patient denies any tobacco usage or history of. ROS: 16:30 Constitutional: Negative for body aches, chills, fever, poor PO intake. cp 16:30 Eyes: Negative for injury, pain, redness, and discharge. cp 16:30 ENT: Negative for drainage from ear(s), ear pain, difficulty swallowing, difficulty handling secretions. 16:30 Cardiovascular: Positive for chest pain, Negative for edema, palpitations. 16:30 Respiratory: Positive for cough, shortness of breath, Negative for wheezing. 16:30 Abdomen/GI: Negative for abdominal pain, vomiting, diarrhea, constipation. 16:30 Back: Positive for radiated pain. 16:30 Neuro: Negative for altered mental status, dizziness, headache, numbness, weakness. 16:30 All other systems are negative. Exam: 16:35 Constitutional: The patient appears in no acute distress, alert, awake, cp non-diaphoretic, non-toxic, well developed, well nourished. 16:35 Head/Face: Normocephalic, atraumatic. cp 16:35 Eyes: Periorbital structures: appear normal, Conjunctiva: normal, no exudate, no injection, Sclera: no appreciated abnormality, Lids and lashes: appear normal, bilaterally. 16:35 ENT: External ear(s): are unremarkable, Ear canal(s): are normal, clear, TM's: dullness, bilaterally, Nose: is normal, Mouth: Lips: moist, Oral mucosa: pink and intact, moist, Posterior pharynx: Airway: no evidence of obstruction, patent, Tonsils: no enlargement, no erythema, no exudate, erythema, is not appreciated, exudate, is not appreciated. 16:35 Neck: ROM/movement: is normal, is supple, without pain, no range of motions limitations, no meningismus. 16:35 Chest/axilla: Inspection: normal. 16:35 Cardiovascular: Rate: normal, Rhythm: regular, Edema: is not appreciated, JVD: is not appreciated. 16:35 Respiratory: the patient does not display signs of respiratory distress, Respirations: normal, no use of accessory muscles, no retractions, labored breathing, is not present, Breath sounds: bronchial sounds, that are mild, are heard diffusely, decreased breath sounds, are not appreciated, stridor, is not appreciated, wheezing: is not appreciated. 16:35 Abdomen/GI: Inspection: abdomen appears normal, Palpation: abdomen is soft and non-tender, in all quadrants. 16:35 Back: pain, that is mild, of the left scapular area, right scapular area, left subscapular area and right subscapular area, ROM is normal. 16:35 Skin: no rash present. 16:35 Neuro: Orientation: to person, place \T\ time. Mentation: is normal, Motor: moves all fours, strength is normal, Gait: is steady, at a normal pace, without difficulty. 16:37 ECG was reviewed by the Attending Physician. Vital Signs: 16:19 Pulse 83; Resp 18; Temp 98.4(O); Pulse Ox 100% on R/A; ss 16:21 BP 116 / 70; ss MDM: 16:25 Patient medically screened. cp 21:11 Data reviewed: vital signs, nurses notes, lab test result(s), EKG, radiologic studies, cp CT scan, plain films. 21:11 Test interpretation: by ED physician or midlevel provider: ECG, plain radiologic cp studies. Special discussion: Based on the patient's history, exam, and Dx evaluation, there is no indication for emergent intervention or inpatient Tx. It is understood by the patient/guardian that if the Sx's persist or worsen they need to return immediately for re-evaluation. ED course: VSS. Patient appears non-toxic and no signs of respiratory distress. Chest pain most likely due to infectious process and low suspicion as cardiac cause. Will discharge to home for continued monitoring. 05/29 16:24 Order name: Basic Metabolic Panel; Complete Time: 17:45 12/ 20:40 Interpretation: Normal except: CL 109; BUN 23; GFR 75. 05/29 16:24 Order name: CBC with Diff; Complete Time: 17:31 12/ 17:31 Interpretation: Normal except: WBC 13.70; BASO% 1.4; NEUT A 9.1. / 16:24 Order name: Magnesium; Complete Time: 17:45 05/29 16:24 Order name: NT PRO-BNP; Complete Time: 17:45 / 16:24 Order name: PT-INR; Complete Time: 17:31 / 16:24 Order name: Troponin HS; Complete Time: 17:45 05/29 16:24 Order name: XRAY Chest (1 view); Complete Time: 17:31 / 16:24 Order name: COVID-19/FLU A+B; Complete Time: 17:45 / 17:50 Order name: LAB Add On 05/29 17:50 Order name: D-Dimer; Complete Time: 18:31 12/ 18:31 Interpretation: Reviewed. 12/ 18:32 Order name: CT Chest For PE Angio; Complete Time: 20:39 12/ 20:39 Interpretation: Report reviewed. 05/29 16:24 Order name: EKG; Complete Time: 16:25 12/ 16:24 Order name: Cardiac monitoring; Complete Time: 20:42 12/ 16:24 Order name: EKG - Nurse/Tech; Complete Time: 16:42 / 16:24 Order name: IV Saline Lock; Complete Time: 17:04 05/29 16:24 Order name: Labs collected and sent; Complete Time: 17:04 05/29 16:24 Order name: O2 Per Protocol; Complete Time: 20:32 cp 05/29 16:24 Order name: O2 Sat Monitoring; Complete Time: 20:32 cp EC:37 Rate is 81 beats/min. Rhythm is regular. TN interval is normal. QRS interval is normal. cp QT interval is normal. T waves are Inverted in lead aVR. Interpreted by me. Reviewed by me. Administered Medications: 21:54 Not Given (Other Intervention Used): Rocephin (cefTRIAXone) 1 grams IM once ld1 21:54 Drug: Rocephin (cefTRIAXone) 1 grams Route: IV; Rate: bolus; Site: left antecubital; ld1 21:55 Drug: Tussionex Pennkinetic ER (chlorpheniramine-hydrocodone) Suspension 2.5 ml Route: ld1 PO; 21:55 Drug: Ibuprofen 600 mg Route: PO; ld1 Disposition: 05/30 17:35 Co-signature as Attending Physician, Peter Spence MD I agree with the assessment and rt plan of care. Disposition Summary: 05/29/22 21:12 Discharge Ordered Location: Home cp Problem: new cp Symptoms: have improved cp Condition: Stable cp Diagnosis - Cough cp Followup: cp - With: Private Physician - When: 2 - 3 days - Reason: Recheck today's complaints Discharge Instructions: - Discharge Summary Sheet cp - Cool Mist Vaporizer cp - Cough, Adult cp Forms: - Medication Reconciliation Form cp - Thank You Letter cp - Antibiotic Education cp - Prescription Opioid Use cp Prescriptions: - Bromfed DM 2-30-10 mg/5 mL Oral syrup - take 7.5 milliliter by ORAL route every 6 hours; 180 milliliter; Refills: 0, cp Product Selection Permitted - Zithromax Z-Landon 250 mg Oral Tablet - take 1 tablet by ORAL route as directed for 5 days Day 1 - take two (2) tablets cp one time. Day 2, 3, 4 , 5 take one (1) tablet once daily.; 6 tablet; Refills: 0, Product Selection Permitted - albuterol sulfate 90 mcg/actuation Inhalation HFA aerosol inhaler - inhale 1 puff by INHALATION route every 4-6 hours; 1 Inhaler; Refills: 0, cp Product Selection Permitted Signatures: Dispatcher [facility] Renae Mckeon RN RN ss Ry Petty PA PA cp Dibbern, Lauren RN RN ld1 Peter Spence MD MD rt Corrections: (The following items were deleted from the chart) 05/29 17:10 16:53 Chest Pa And Lat (2 Views)+[email or web address] ordered. EDMS EDMS
[2022-05-29] MEDS ORDERED: HYDROCODONE/CHLORPHEN 5 ML/OSYR ONE (21:49)
[2022-05-29] MEDS ORDERED: ACETAMINOPHEN 500 MG TAB ONE (21:49)
[2022-05-29] MEDS ORDERED: CEFTRIAXONE 1000 MG/VIAL ONE (21:50)
[2022-05-29] MEDS ORDERED: IBUPROFEN 200 MG TAB PO ONE (21:50)
[2022-05-30 14:48] VITALS: TEMP 98.4; O2SAT 100
[2022-05-30 14:49] VITALS: BP 116/70
--- NOTE | 2022-06-01 15:05 | EKG ---
Test Date: 2022-05-29 Test Time: 16:31:53 Cream Hauler: THERESA MEASUREMENT RESULTS: Intervals: Rate: 81 VT: 148 QRSD: 72 QT: 390 QTc: 453 Fannin: P: 58 VT: 148 QRS: 65 T: 53 INTERPRETIVE STATEMENTS: Normal sinus rhythm Normal ECG Compared to ECG 10/11/2020 09:21:25 No significant changes Electronically Signed On 06-01-22 14:58:01 CORN PICKER by Kehinde Phillips
== END 2022-05-29 22:07 | disposition home or self-care (01) ==
LOC: ER 15:10
DX: R05.9 Cough, unspecified (principal); R07.89 Other chest pain; I10 Essential (primary) hypertension; Z20.822 Contact with and (suspected) exposure to COVID-19
CPT/HCPCS: 93005; 85025; 80048; 36415; 83735; 85610; 85379; 84484; 83880; 0240U; 71275; 71045; 96374; 99284; Q9967